=== PATIENT | female | born 1940 | race Caucasian/White ===

== ENCOUNTER 2018-11-06 10:30 | Inpatient (IN) ==
--- NOTE | 2018-11-06 11:30 | ED ---
HPI General Chief Complaint: Psychiatric Symptoms Stated Complaint: psych eval Time Seen by Provider: 11/06/18 10:50 Source: other (Kennedy act report) Mode of arrival: ambulatory Limitations: no limitations History of Present Illness HPI Narrative: 78-year-old female, with history of dementia and Alzheimer's, presents from [facility] under a Kennedy act. According to the Kennedy act report the patient's behavior has escalated today, she is throwing items at other people, hitting shelving, throwing feces, etc. Very paranoid. Refusing meds this morning, knocked the cup out of nurses hand. HPI is limited secondary to patient's mental condition. She is oriented to self. When asked questions she answers them with inappropriate answers. She told me she was at a democrat until 4 AM this morning. She asked me if we could go faster, and when I asked her how fast she wanted to go she commented "are you calling me fat." She is calm at this time. She does not appear in any acute distress. She is awake, alert and confused. Related Data Home Medications Medication Instructions Recorded Confirmed acetaminophen 650 mg PO Q4HR PRN 11/06/18 11/06/18 cyanocobalamin (vitamin B-12) 1,000 mcg PO DAILY 11/06/18 11/06/18 [Vitamin B-12] diltiazem HCl 30 mg PO TID 11/06/18 11/06/18 escitalopram oxalate 10 mg PO DAILY 11/06/18 11/06/18 hydroxyzine pamoate [Vistaril] 25 mg PO TID 11/06/18 11/06/18 ipratropium-albuterol 3 ml INHALATION QID 11/06/18 11/06/18 memantine 10 mg PO DAILY 11/06/18 11/06/18 oseltamivir [Tamiflu] 75 mg PO BID 11/06/18 11/06/18 propafenone 150 mg PO TID 11/06/18 11/06/18 quetiapine 50 mg PO HS 11/06/18 11/06/18 Allergies Allergy/AdvReac Type Severity Reaction Status Date / Time atorvastatin Allergy Unknown Verified 11/06/18 12:29 rosuvastatin [From Crestor] Allergy Unknown Verified 11/06/18 12:29 Review of Systems ROS Unobtainable ROS Unobtainable: unobtainable due to mental condition [facility] Medical History Medical History Altered mental status, unspecified (Acute) Alzheimers disease (Acute) Cardiac arrhythmia (Acute) Generalized anxiety disorder (Acute) Hypertension (Acute) Major depressive disorder, recurrent (Acute) Surgical history unknown (Acute) Unspecified dementia with behavioral disturbance (Acute) Family History Family History Other Unknown family medical history Social History Social History Substance History: No History of Abuse Second Hand Smoke Exposure: No Smoking Status: Never smoker How Often Do You Have a Drink Containing Alcohol: Never Recent Travel in [facility] within the Last 8 Weeks: No Recent Out of Country Travel within the Last 8 Weeks: No Immunization History Tetanus Immunization: Unable to Assess Exam Narrative Exam Narrative: GENERAL: Well-nourished, well-developed elderly female patient, in no acute distress SKIN: Warm and dry. HEAD: Atraumatic. Normocephalic. EYES: Pupils equal and round. ENT: Mucosa pink and moist. NECK: Supple. Trachea midline. CARDIOVASCULAR: Regular rate and rhythm. No murmur appreciated. RESPIRATORY: No accessory muscle use. Clear to auscultation. Breath sounds equal bilaterally. GASTROINTESTINAL: Abdomen soft, non-tender, nondistended. Hepatic and splenic margins not palpable. Bowel sounds are active 4 quadrants. MUSCULOSKELETAL: No obvious deformities. No clubbing. No cyanosis. No edema. NEUROLOGICAL: Awake and alert. Oriented 1; Self. No obvious cranial nerve deficits. Motor grossly within normal limits. Normal speech. Moves all extremities. 5/5 strength to all extremities. PSYCHIATRIC: Demented. Course Initial Documented Vital Signs Temperature 98.6 F 11/06/18 10:46 Pulse Rate 75 11/06/18 10:46 Respiratory Rate 18 11/06/18 10:46 Blood Pressure 154/87 H 11/06/18 10:46 Pulse Oximetry 97 11/06/18 10:46 Last Documented Vital Signs Temperature 98.6 F 11/06/18 10:46 Pulse Rate 67 11/06/18 15:57 Respiratory Rate 18 11/06/18 15:57 Blood Pressure 124/83 11/06/18 14:39 Pulse Oximetry 98 11/06/18 14:39 Medical Decision Making MDM Narrative Medical decision making narrative: Patient presents under a Kennedy act This is an inappropriate Kennedy act, as the patient is demented and has history of Alzheimer's, and does not meet Kennedy act criteria. She is alert and oriented x1 , to self. I cannot lift Kennedy acts, so psych screen will be ordered for the Kennedy act to be lifted. Case management consulted as the living facility she came from does not want her back in their facility. I suspect this patient will be a social admit if placement is not found. Physical examination and vital signs are essentially unremarkable. Psych screen has been ordered. If the laboratory results are unremarkable, the patient will be medically cleared for psychiatric evaluation and disposition. Patient had a CT of her head on 2017 which was unremarkable. I do not feel it is necessary to repeat a CT scan as there has been no injury or falls reported. Patient is continuously trying to get out of bed and she continues to have soft restraints. Patient has IV in place. I will order Ativan to see if we can calm the patient and get her out of the soft restraints. Ativan 0.5 mg IV ordered. Patient continued to be agitated and trying to climb out of bed continuously. IV has come out. 1 mg Ativan IM ordered. CBC unremarkable. TSH 1.780. Urinalysis with signs of infection. 1 g Rocephin IM ordered. Keflex 500 mg every 8 hours scheduled times 7 days. Nurse was concerned about the smell of the patient's stool and stool sample was collected and C. difficile ordered. C. difficile pending. Patient has been evaluated by GERSON Hdez and is being admitted to psychiatry. Medical Screen Exam Complete: Yes Emergency Medical Condition: Yes Differential Diagnosis Differential Diagnosis: Dementia, Alzheimer's, UTI, electrolyte imbalance, medical clearance for psychiatric assessment Lab Data Result diagrams: 11/06/18 11:20 11/06/18 11:20 Lab Results 11/06/18 11/06/18 11/06/18 Range/Units 11:20 11:20 11:20 WBC 9.1 (4.0-11.0) th/mm3 RBC 4.16 (4.00-5.30) mil/mm3 Hgb 13.2 (11.6-15.3) gm/dL Hct 37.7 (35.0-46.0) % MCV 90.7 (80.0-100.0) fL MCH 31.8 (27.0-34.0) pg MCHC 35.1 (32.0-36.0) % RDW 13.2 (11.6-17.2) % Plt Count 224 (150-450) th/mm3 MPV 7.3 (7.0-11.0) fL Neut % (Auto) 77.2 H (16.0-70.0) % Lymph % (Auto) 11.5 (9.0-44.0) % [place] % (Auto) 10.3 H (0.0-8.0) % Eos % (Auto) 0.6 (0.0-4.0) % Baso % (Auto) 0.4 (0.0-2.0) % Neut # (Auto) 7.0 (1.8-7.7) th/mm3 Lymph # (Auto) 1.0 (1.0-4.8) th/mm3 [place] # (Auto) 0.9 (0.0-0.9) th/mm3 Eos # (Auto) 0.1 (0.0-0.4) th/mm3 Baso # (Auto) 0.0 (0.0-0.2) th/mm3 WBC Differential . Differential Comment Auto diff final Sodium 140 (136-145) meq/L Potassium 3.8 (3.5-5.1) meq/L Chloride 106 (98-107) meq/L Carbon Dioxide 22.7 (21.0-32.0) meq/L Anion Gap 11 (5-15) meq/L BUN 20 H (7-18) mg/dL Creatinine 1.15 H (0.50-1.00) mg/dL Estimated GFR 46 L (>89) mL/min Random Glucose 84 (74-106) mg/dL Calcium 8.6 (8.5-10.1) mg/dL Magnesium 1.7 (1.5-2.5) mg/dL Total Bilirubin 1.1 H (0.2-1.0) mg/dL AST 56 H (15-37) U/L ALT 34 (10-53) U/L Alkaline Phosphatase 63 (45-117) U/L Total Protein 7.4 (6.4-8.2) g/dL Albumin 3.5 (3.4-5.0) g/dL TSH 1.780 (0.358-3.740) uIU/mL Urine Color (Yellw/Straw) Urine Clarity (Clear) Urine pH (5.0-8.5) Ur Specific [place] (1.002-1.035) Urine Protein (Neg-Trace) mg/dL Urine Glucose (UA) (Negative) mg/dL Urine Ketones (Negative) mg/dL Urine Occult Blood (Negative) Urine Nitrate (Negative) Urine Bilirubin (Negative) Urine Urobilinogen (Less than 2) mg/dL Ur Leukocyte Esterase (Negative) Urine RBC (0-3) /hpf Urine WBC (0-5) /hpf Urine Bacteria (None) /hpf Urine Mucus (Occasional) /lpf Micro UA Comment Ur Microscopic Review Urine Culture Comments Stl C.difficile DNA Amp (Negative) St C. diff Tox Epid 027 (Negative) Salicylates Less than 1.7 L (2.8-20.0) mg/dL Urine Opiates Screen (Neg) Acetaminophen Less than 2.0 L (10.0-30.0) mcg/mL Ur Barbiturates Screen (Neg) Ur Amphetamines Screen (Neg) U Benzodiazepines Scrn (Neg) Urine Cocaine Screen (Neg) U Cannabinoids Screen (Neg) Serum Alcohol Less than 3 (0-5) mg/dL 11/06/18 11/06/18 11/06/18 Range/Units 14:25 14:25 14:30 WBC (4.0-11.0) th/mm3 RBC (4.00-5.30) mil/mm3 Hgb (11.6-15.3) gm/dL Hct (35.0-46.0) % MCV (80.0-100.0) fL MCH (27.0-34.0) pg MCHC (32.0-36.0) % RDW (11.6-17.2) % Plt Count (150-450) th/mm3 MPV (7.0-11.0) fL Neut % (Auto) (16.0-70.0) % Lymph % (Auto) (9.0-44.0) % [place] % (Auto) (0.0-8.0) % Eos % (Auto) (0.0-4.0) % Baso % (Auto) (0.0-2.0) % Neut # (Auto) (1.8-7.7) th/mm3 Lymph # (Auto) (1.0-4.8) th/mm3 [place] # (Auto) (0.0-0.9) th/mm3 Eos # (Auto) (0.0-0.4) th/mm3 Baso # (Auto) (0.0-0.2) th/mm3 WBC Differential Differential Comment Sodium (136-145) meq/L Potassium (3.5-5.1) meq/L Chloride (98-107) meq/L Carbon Dioxide (21.0-32.0) meq/L Anion Gap (5-15) meq/L BUN (7-18) mg/dL Creatinine (0.50-1.00) mg/dL Estimated GFR (>89) mL/min Random Glucose (74-106) mg/dL Calcium (8.5-10.1) mg/dL Magnesium (1.5-2.5) mg/dL Total Bilirubin (0.2-1.0) mg/dL AST (15-37) U/L ALT (10-53) U/L Alkaline Phosphatase (45-117) U/L Total Protein (6.4-8.2) g/dL Albumin (3.4-5.0) g/dL TSH (0.358-3.740) uIU/mL Urine Color Yellow (Yellw/Straw) Urine Clarity Hazy H (Clear) Urine pH 5.0 (5.0-8.5) Ur Specific [place] 1.016 (1.002-1.035) Urine Protein Negative (Neg-Trace) mg/dL Urine Glucose (UA) Negative (Negative) mg/dL Urine Ketones 20 (Negative) mg/dL Urine Occult Blood Negative (Negative) Urine Nitrate Positive H (Negative) Urine Bilirubin Negative (Negative) Urine Urobilinogen Less than 2 (Less than 2) mg/dL Ur Leukocyte Esterase Trace H (Negative) Urine RBC 1 (0-3) /hpf Urine WBC 15 H (0-5) /hpf Urine Bacteria Moderate H (None) /hpf Urine Mucus Few H (Occasional) /lpf Micro UA Comment Cath-culture ind Ur Microscopic Review Not Reportable Urine Culture Comments Cath-cult indicated Stl C.difficile DNA Amp Negative (Negative) St C. diff Tox Epid 027 Negative (Negative) Salicylates (2.8-20.0) mg/dL Urine Opiates Screen Neg (Neg) Acetaminophen (10.0-30.0) mcg/mL Ur Barbiturates Screen Neg (Neg) Ur Amphetamines Screen Neg (Neg) U Benzodiazepines Scrn Neg (Neg) Urine Cocaine Screen Neg (Neg) U Cannabinoids Screen Neg (Neg) Serum Alcohol (0-5) mg/dL Discharge Plan Discharge Disposition Patient Disposition: Sign Out(ED Internal Use Only) Discharge Condition Condition: Stable Discharge Order Discharge Orders: ED Use Only Admit Order (Routine); Ordered 11/06/18 Ordered By: Nimo Smith Discharge Details Diagnosis: Dementia with behavioral disturbance, Encounter for psychiatric assessment, UTI (urinary tract infection) Physicians Team ED Provider: Mukul Forde ED Midlevel Provider: Deedee Baron Primary Care Provider: Leobardo Pettit Attending Provider: Augustus Winkler Status ED Status: Admitted Patient
[2018-11-06 11:59] LABS: Baso % (Auto) 0.4 % (0.0-2.0); Eos # (Auto) 0.1 th/mm3 (0.0-0.4); Eos % (Auto) 0.6 % (0.0-4.0); Hematocrit 37.7 % (35.0-46.0); Hemoglobin 13.2 gm/dL (11.6-15.3); Lymph % (Auto) 11.5 % (9.0-44.0); Mean Corpuscular HGB Conc 35.1 % (32.0-36.0); Mean Corpuscular Hemoglobin 31.8 pg (27.0-34.0); Mean Corpuscular Volume 90.7 fL (80.0-100.0); Mean Platelet Volume 7.3 fL (7.0-11.0); Mono # (Auto) 0.9 th/mm3 (0.0-0.9); Mono % (Auto) 10.3 % (0.0-8.0); Neut % (Auto) 77.2 % (16.0-70.0); Platelet Count 224 th/mm3 (150-450); Red Blood Count 4.16 mil/mm3 (4.00-5.30); Red Cell Distribution Width 13.2 % (11.6-17.2); White Blood Count 9.1 th/mm3 (4.0-11.0)
[2018-11-06 12:33] LABS: Alanine Aminotransferase 34 U/L (10-53); Albumin 3.5 g/dL (3.4-5.0); Alkaline Phosphatase 63 U/L (45-117); Anion Gap 11 meq/L (5-15); Aspartate Aminotransferase 56 U/L (15-37); Blood Urea Nitrogen 20 mg/dL (7-18); Calcium 8.6 mg/dL (8.5-10.1); Carbon Dioxide 22.7 meq/L (21.0-32.0); Chloride 106 meq/L (98-107); Glomerular Filtration Rate 46 mL/min (>89); Glucose,Random 84 mg/dL (74-106); Magnesium 1.7 mg/dL (1.5-2.5); Sodium 140 meq/L (136-145); Total Protein 7.4 g/dL (6.4-8.2)
[2018-11-06 12:38] LABS: Potassium 3.8 meq/L (3.5-5.1)
[2018-11-06 14:42] LABS: Bacteria,Urine Moderate /hpf; Bilirubin,Urine Negative (Negative); Clarity,Urine Hazy (Clear); Color,Urine Yellow (Yellw/Straw); Glucose,Urine (UA) Negative (Negative); Leukocyte Esterase,Urine Trace (Negative); Mucus,Urine Few /lpf (Occasional); Nitrite,Urine Positive (Negative); Specific Gravity,Urine 1.016 (1.002-1.035)
[2018-11-06 14:46] LABS: Amphetamine Screen,Urine Neg (Neg); Barbiturate Screen,Urine Neg (Neg); Cannabinoid Screen,Urine Neg (Neg); Cocaine Screen,Urine Neg (Neg)
[2018-11-06 14:48] LABS: Opiate Screen,Urine Neg (Neg)
[2018-11-06] MEDS ORDERED: Aluminum/Magnesium/Simethacone Susp 30 ML UDC PO PRN (15:16)
[2018-11-06] MEDS ORDERED: cefTRIAXone Inj 1,000 MG Vial IM ONE (15:19)
--- NOTE | 2018-11-06 16:30 | XR ---
EXAM DATE: 11/06/2018 4:20 PM EST AGE/SEX: 78 years / Female INDICATIONS: Cough, psychosis. CLINICAL DATA: This is the patient's initial encounter. Patient reports that signs and symptoms have been present for 1 day and indicates a pain score of Nonresponsive. MEDICAL/SURGICAL HISTORY: Hypertension. Alzheimer's. Non-responsive. COMPARISON: No prior exams available for comparison. FINDINGS: A single AP view of the chest demonstrates the lungs to be symmetrically aerated without evidence of mass, infiltrate or effusion. Right paratracheal density likely confluence of vasculature. The cardio mediastinal contours are unremarkable. Osseous structures are intact. CONCLUSION: No acute cardiopulmonary disease. Electronically signed by: Sanjay Art MD Board Certified Radiologist 11/06/2018 4:29 PM EST
--- NOTE | 2018-11-06 17:31 | ED ---
HPI - Psych - General Time Seen by Psych Provider: 15:13 Source: family, old records reviewed, other (Kennedy act report) Mode of arrival: ambulatory Limitations: altered mental status - General Chief Complaint: Psychiatric Symptoms Stated Complaint: psych eval Time Seen by Provider: 11/06/18 10:50 - History of Present Illness HPI Narrative: This is a 78-year-old single, female who presents under Kennedy act for behavioral disturbances in the presence of dementia while at her long-term care facility. Patient is known to this department with a recent admission in August. Reviewed electronic medical records, labs, discussed case with staff. Patient noted to have a urinary tract infection at this time. Discussed it with medical nurse practitioner who is ordering appropriate antibiotics. Patient was evaluated in D 42. She has found in soft restraints to her upper extremities. Patient is unable to answer any questions as she is diffusely confused. Staff reports that when not in restraints patient has been attempting to hit, scratch, bite, and throw things at them. In reviewing the paperwork from her facility, the documentation shows that patient has had no behavioral issues over the past several weeks. It would appear that she has an acute onset of delusional behavior likely related to her urinary tract infection. In speaking with her sister, who is also her surrogate /guardian, the patient does not appear to have had any psychiatric diagnoses prior to her developing dementia. This is reports there is some confusion as to whether she "really has dementia or not". This is her states that a Dr. Morales reversed her diagnosis of dementia sometime in the recent past. However, the sister reports that recently when her daughter went to visit the patient the patient was confused as to who she was. She also mentions several other memory lapses which would seem to point towards dementia. (Nimo Smith) - Related Data Home Medications Medication Instructions Recorded Confirmed acetaminophen 650 mg PO Q4HR PRN 11/06/18 11/06/18 cyanocobalamin (vitamin B-12) 1,000 mcg PO DAILY 11/06/18 11/06/18 [Vitamin B-12] diltiazem HCl 30 mg PO TID 11/06/18 11/06/18 escitalopram oxalate 10 mg PO DAILY 11/06/18 11/06/18 hydroxyzine pamoate [Vistaril] 25 mg PO TID 11/06/18 11/06/18 ipratropium-albuterol 3 ml INHALATION QID 11/06/18 11/06/18 memantine 10 mg PO DAILY 11/06/18 11/06/18 oseltamivir [Tamiflu] 75 mg PO BID 11/06/18 11/06/18 propafenone 150 mg PO TID 11/06/18 11/06/18 quetiapine 50 mg PO HS 11/06/18 11/06/18 Allergies Allergy/AdvReac Type Severity Reaction Status Date / Time atorvastatin Allergy Unknown Verified 11/06/18 12:29 rosuvastatin [From Crestor] Allergy Unknown Verified 11/06/18 12:29 Review of Systems All other systems reviewed negative except as stated in HPI PMFSH - History History Provided By: Patient - Medical History Medical History: Medical History (Last Reviewed 11/06/18 @ 17:26 by GERSON eDgroot) Altered mental status, unspecified Alzheimers disease Cardiac arrhythmia Generalized anxiety disorder Hypertension Major depressive disorder, recurrent Surgical history unknown Unspecified dementia with behavioral disturbance - Family History Family History: Family History (Last Updated 09/21/18 @ 17:26 by GERSON Love) Other Unknown family medical history - Tobacco History Second Hand Smoke Exposure: No Smoking Status: Never smoker - Alcohol History How Often Do You Have a Drink Containing Alcohol: Never - Substance Use History Substance History: No History of Abuse - Travel History Recent Travel in the [place] Within the Last 8 Weeks: No Recent Travel Out of the Country Within the Last 8 Weeks: No - Immunization History Tetanus Immunization: Unable to Assess Psychiatric History - Psychiatric History Psychiatric Treatment History: History of Psychiatric Treatment History of Inpatient Treatment: Yes Firearms in Home: No - Psychiatric History Patient was admitted here in August (Nimo Smith) Physical Exam - General Limitations: altered mental status General appearance: alert - Head Head exam: atraumatic - Neurological Exam Neurological exam: Present: other (Unable to assess) - Psychiatric Psychiatric exam: Present: other (Unable to assess) - Skin Skin exam: Present: warm Mental Status Examination Appearance: Disheveled Consciousness: Alert Orientation: Person (Unable to assess) Motor Activity: Other (In restraints) Speech: Other (Unable to assess) Language: Other Fund of Knowledge: Poor Attention and Concentration: Other (Unable to assess) Memory: Impaired Mood: Other (Unable to assess) Affect: Irritable Thought Process & Associations: Other (Unable to assess) Thought Content: Other (Unable to assess) Hallucination Type: Other (Unable to assess) Delusion Type: Other (Unable to assess) Suicidal Ideation: No Suicidal Plan: No Suicidal Intention: No Homicidal Ideation: No Homicidal Plan: No Homicidal Intention: No Insight: Poor Judgment: Poor Initial Documented Vital Signs Temperature 98.6 F 11/06/18 10:46 Pulse Rate 75 11/06/18 10:46 Respiratory Rate 18 11/06/18 10:46 Blood Pressure 154/87 H 11/06/18 10:46 Pulse Oximetry 97 11/06/18 10:46 Last Documented Vital Signs Temperature 98.6 F 11/06/18 10:46 Pulse Rate 67 11/06/18 15:57 Respiratory Rate 18 11/06/18 15:57 Blood Pressure 124/83 11/06/18 14:39 Pulse Oximetry 98 11/06/18 14:39 MDM - Psych - Diagnosis (1) Dementia with behavioral disturbance Code(s): F03.91 - Unspecified dementia with behavioral disturbance Status: Acute - Lab Data Result diagrams: 11/06/18 11:20 11/06/18 11:20 - MDM Narrative Medical decision making narrative: Given that the patient is being aggressive and poses a danger to others she meets inpatient admission criteria. Therefore, I am admitting her to a locked inpatient psychiatric unit for further evaluation and treatment as deemed necessary. I have obtained consent via phone from her sister, surrogate/ guardian to continue her current psychotropic regimen. Patient is being started on antibiotics for a urinary tract infection and it is my hope that as the UTI clears so we will her symptoms. She was started on Tamiflu yesterday however, her sister stated that the facility told her she did not have the flu. An influenza test at this facility shows she is negative for both a and B influenza therefore, I will not continue the Tamiflu. (Nimo Smith) - Lab Data Lab Results 11/06/18 11/06/18 11/06/18 Range/Units 11:20 11:20 11:20 WBC 9.1 (4.0-11.0) th/mm3 RBC 4.16 (4.00-5.30) mil/mm3 Hgb 13.2 (11.6-15.3) gm/dL Hct 37.7 (35.0-46.0) % MCV 90.7 (80.0-100.0) fL MCH 31.8 (27.0-34.0) pg MCHC 35.1 (32.0-36.0) % RDW 13.2 (11.6-17.2) % Plt Count 224 (150-450) th/mm3 MPV 7.3 (7.0-11.0) fL Neut % (Auto) 77.2 H (16.0-70.0) % Lymph % (Auto) 11.5 (9.0-44.0) % [place] % (Auto) 10.3 H (0.0-8.0) % Eos % (Auto) 0.6 (0.0-4.0) % Baso % (Auto) 0.4 (0.0-2.0) % Neut # (Auto) 7.0 (1.8-7.7) th/mm3 Lymph # (Auto) 1.0 (1.0-4.8) th/mm3 [place] # (Auto) 0.9 (0.0-0.9) th/mm3 Eos # (Auto) 0.1 (0.0-0.4) th/mm3 Baso # (Auto) 0.0 (0.0-0.2) th/mm3 WBC Differential . Differential Comment Auto diff final Sodium 140 (136-145) meq/L Potassium 3.8 (3.5-5.1) meq/L Chloride 106 (98-107) meq/L Carbon Dioxide 22.7 (21.0-32.0) meq/L Anion Gap 11 (5-15) meq/L BUN 20 H (7-18) mg/dL Creatinine 1.15 H (0.50-1.00) mg/dL Estimated GFR 46 L (>89) mL/min Random Glucose 84 (74-106) mg/dL Calcium 8.6 (8.5-10.1) mg/dL Magnesium 1.7 (1.5-2.5) mg/dL Total Bilirubin 1.1 H (0.2-1.0) mg/dL AST 56 H (15-37) U/L ALT 34 (10-53) U/L Alkaline Phosphatase 63 (45-117) U/L Total Protein 7.4 (6.4-8.2) g/dL Albumin 3.5 (3.4-5.0) g/dL TSH 1.780 (0.358-3.740) uIU/mL Urine Color (Yellw/Straw) Urine Clarity (Clear) Urine pH (5.0-8.5) Ur Specific [place] (1.002-1.035) Urine Protein (Neg-Trace) mg/dL Urine Glucose (UA) (Negative) mg/dL Urine Ketones (Negative) mg/dL Urine Occult Blood (Negative) Urine Nitrate (Negative) Urine Bilirubin (Negative) Urine Urobilinogen (Less than 2) mg/dL Ur Leukocyte Esterase (Negative) Urine RBC (0-3) /hpf Urine WBC (0-5) /hpf Urine Bacteria (None) /hpf Urine Mucus (Occasional) /lpf Micro UA Comment Ur Microscopic Review Urine Culture Comments Stl C.difficile DNA Amp (Negative) St C. diff Tox Epid 027 (Negative) Salicylates Less than 1.7 L (2.8-20.0) mg/dL Urine Opiates Screen (Neg) Acetaminophen Less than 2.0 L (10.0-30.0) mcg/mL Ur Barbiturates Screen (Neg) Ur Amphetamines Screen (Neg) U Benzodiazepines Scrn (Neg) Urine Cocaine Screen (Neg) U Cannabinoids Screen (Neg) Serum Alcohol Less than 3 (0-5) mg/dL 11/06/18 11/06/18 11/06/18 Range/Units 14:25 14:25 14:30 WBC (4.0-11.0) th/mm3 RBC (4.00-5.30) mil/mm3 Hgb (11.6-15.3) gm/dL Hct (35.0-46.0) % MCV (80.0-100.0) fL MCH (27.0-34.0) pg MCHC (32.0-36.0) % RDW (11.6-17.2) % Plt Count (150-450) th/mm3 MPV (7.0-11.0) fL Neut % (Auto) (16.0-70.0) % Lymph % (Auto) (9.0-44.0) % [place] % (Auto) (0.0-8.0) % Eos % (Auto) (0.0-4.0) % Baso % (Auto) (0.0-2.0) % Neut # (Auto) (1.8-7.7) th/mm3 Lymph # (Auto) (1.0-4.8) th/mm3 [place] # (Auto) (0.0-0.9) th/mm3 Eos # (Auto) (0.0-0.4) th/mm3 Baso # (Auto) (0.0-0.2) th/mm3 WBC Differential Differential Comment Sodium (136-145) meq/L Potassium (3.5-5.1) meq/L Chloride (98-107) meq/L Carbon Dioxide (21.0-32.0) meq/L Anion Gap (5-15) meq/L BUN (7-18) mg/dL Creatinine (0.50-1.00) mg/dL Estimated GFR (>89) mL/min Random Glucose (74-106) mg/dL Calcium (8.5-10.1) mg/dL Magnesium (1.5-2.5) mg/dL Total Bilirubin (0.2-1.0) mg/dL AST (15-37) U/L ALT (10-53) U/L Alkaline Phosphatase (45-117) U/L Total Protein (6.4-8.2) g/dL Albumin (3.4-5.0) g/dL TSH (0.358-3.740) uIU/mL Urine Color Yellow (Yellw/Straw) Urine Clarity Hazy H (Clear) Urine pH 5.0 (5.0-8.5) Ur Specific [place] 1.016 (1.002-1.035) Urine Protein Negative (Neg-Trace) mg/dL Urine Glucose (UA) Negative (Negative) mg/dL Urine Ketones 20 (Negative) mg/dL Urine Occult Blood Negative (Negative) Urine Nitrate Positive H (Negative) Urine Bilirubin Negative (Negative) Urine Urobilinogen Less than 2 (Less than 2) mg/dL Ur Leukocyte Esterase Trace H (Negative) Urine RBC 1 (0-3) /hpf Urine WBC 15 H (0-5) /hpf Urine Bacteria Moderate H (None) /hpf Urine Mucus Few H (Occasional) /lpf Micro UA Comment Cath-culture ind Ur Microscopic Review Not Reportable Urine Culture Comments Cath-cult indicated Stl C.difficile DNA Amp Negative (Negative) St C. diff Tox Epid 027 Negative (Negative) Salicylates (2.8-20.0) mg/dL Urine Opiates Screen Neg (Neg) Acetaminophen (10.0-30.0) mcg/mL Ur Barbiturates Screen Neg (Neg) Ur Amphetamines Screen Neg (Neg) U Benzodiazepines Scrn Neg (Neg) Urine Cocaine Screen Neg (Neg) U Cannabinoids Screen Neg (Neg) Serum Alcohol (0-5) mg/dL
[2018-11-06] MEDS: dilTIAZem 30 MG Tablet PO SCH (18:44)
[2018-11-06] MEDS: Propafenone 150 MG Tablet PO SCH (18:44)
[2018-11-06] MEDS ORDERED: Non-Formulary Drug (Quetiapine [Quetiapine] 50 MG) PO SCH (21:00)
[2018-11-06] MEDS: QUEtiapine 25 MG Tablet PO SCH (21:36)
[2018-11-07] MEDS ORDERED: Acetaminophen 325 MG Tablet PO PRN (00:30)
[2018-11-07 07:47] LABS: Calcium 8.1 mg/dL (8.5-10.1); Carbon Dioxide 27.9 meq/L (21.0-32.0); Chol/HDL Ratio 3.27 Ratio
[2018-11-07] MEDS: dilTIAZem 30 MG Tablet PO SCH ×3 (08:00→18:15)
[2018-11-07] MEDS: Escitalopram 10 MG Tablet PO SCH (08:00)
[2018-11-07] MEDS: Propafenone 150 MG Tablet PO SCH ×3 (08:00→18:16)
[2018-11-07 08:02] LABS: Potassium 2.6 meq/L (3.5-5.1)
--- NOTE | 2018-11-07 13:22 | P.HPPSY ---
Provisional Diagnosis Admission Date: November 06, 2018 15:30 Burt I.: Dementia with behavioral disturbances Burt III.: Urinary tract infection Competence Certification of Person's Competence To Provide Express and Informed Consent I have personally examined Heidi Powell, a person being served at [facility] on, November 07, 2018 1309. Express and informed consent means consent voluntarily given in writing, by a competent person, after sufficient explanation and disclosure of the subject matter involved to enable the person to make a knowing and willful decision without any element of force, fraud, deceit, duress, or other form of constraint or coercion. This person is 18 years of age or older, is not now known to be incompetent to consent to treatment with a guardian advocate, and does not have a health care surrogate or proxy currently making medical treatment decisions. I have found this person to be one of the following: [] Competent to provide express and informed consent, as defined above, for voluntary admission to this facility and is competent to provide express and informed consent for treatment. He/she has the consistent capacity to make well reasoned, willful, and knowing decisions concerning his or her medical or mental health treatment. The person fully and consistently understands the purpose of the admission for examination/placement and is fully capable of personally exercising all rights assured under [place]xxx] Incompetent to provide express and informed consent to voluntary admission , and this is incompetent to provide express and informed consent to treatment. The person must be transferred to involuntary status and a petition for a guardian advocate filed with the Circuit Court. [] Refusing to provide express and informed consent to voluntary admission but is competent to provide express and informed consent for treatment. The person must be discharged or transferred to involuntary status. Form shall be completed within 24 hours of a person's arrival at the receiving facility and filed in the clinical record of each person: 1. Admitted on a voluntary basis 2. Permitted to provide express and informed consent to his/her own treatment 3. Allowed to transfer from involuntary to voluntary status 4. Prior to permitting a person to consent to his or her own treatment after having been previously found incompetent to consent to treatment. History of Present Illness Capacity: Lacks capacity History of Present Illness: Patient is a 78-year-old woman, domiciled in a nursing facility ( [facility]), who carries a diagnosis of dementia, one previous psychiatric admission here at [facility] in August 2018, with no substance use history, with a past medical significant for hypertension, cardiac arrhythmias, and recent diagnosis of urinary tract infection which patient was brought in under Kennedy act due to alleged behavior of aggression toward staff at facility which patient was admitted to the inpatient psychiatry for further evaluation and management. As per chart patient was discharged during last admission on quetiapine 50 g p.o. at bedtime, Lexapro 10 mg p.o. daily which as per report has been refusing meds prior to her admission, with behavior that has been "escalating" which patient was allegedly throwing items at people, throwing feces, paranoid. As per ED note facility had mentioned refused to take patient back. Patient was started on Keflex for UTI in the ED along with C. difficile stool sample which as per lab is negative at this time. Patient is alert and oriented only to person. Patient was seen with nurse earlier this morning and found lying in hospital bed with eyes closed, was refusing to engage in interview, was nonverbal this morning, continues to have poor p.o. intake. Labs reviewed patient noted to have hypokalemia which currently being managed by medical team. As per chart patient's sister had consented to continue psychiatric medications. Family psychiatric history: Unknown Past psychiatric history: previous psychiatric diagnosis of dementia, one prior psychiatric admission here at [facility] August 2018, unknown prior suicide attempts, previous medication trials include quetiapine 50 mg p.o. at bedtime, citalopram 10 mg p.o. daily. Substance use history: Denies Past medical history: Hypertension, cardiac arrhythmia Allergies: Atorvastatin, rosuvastatin Social history: [facility] ([facility]). - Inpatient Certification I certify that the inpatient services were ordered in accordance with Medicare regulations governing the order. This includes certification that hospital inpatient services are reasonable and necessary and in the case of services not specified as inpatient-only under 42 CFR 419.22(n), that they are appropriately provided as inpatient services in accordance to with the 2-midnight benchmark under 43 CFR 412.3(e) I certify that inpatient psychiatric hospital services are medically necessary. Evaluation and treatment and/or diagnostic testing are expected to improve the patient's condition. The patient needs on a daily basis, active treatment furnished directly by or requiring the supervision of inpatient psychiatric facility personnel. Estimated Total Length of Stay (Days): 5 Plans for Post Hospital Care: Not yet determined Review of Systems unobtainable due to mental condition PMFSH - History History Provided By: Patient, Medical Record - Medical History Medical History: Medical History (Last Reviewed 11/06/18 @ 17:26 by GERSON Degroot) Altered mental status, unspecified Alzheimers disease Cardiac arrhythmia Generalized anxiety disorder Hypertension Major depressive disorder, recurrent Surgical history unknown Unspecified dementia with behavioral disturbance - Family History Family History: Family History (Last Updated 09/21/18 @ 17:26 by GERSON Love) Other Unknown family medical history - Tobacco History Second Hand Smoke Exposure: No Tobacco Use In Past 30 Days: No Smoking Status: Never smoker - Alcohol History How Often Do You Have a Drink Containing Alcohol: Never - Substance Use History Substance History: No History of Abuse - Travel History Recent Travel in the [place] Within the Last 8 Weeks: No Recent Travel Out of the Country Within the Last 8 Weeks: No - Immunization History Tetanus Immunization: Unable to Assess Quality Measures - Psychiatric History Psychological trauma history: Unable to assess due to patient's neurocognitive deficits. Violence risk to others in the last 6 months: Elevated due to the alleged report of recent aggressive behavior at nursing facility. Violence risk to self in the last 6 months: Low - Substance Abuse History Drug or alcohol use in the past 12 months: None - Patient Strengths Patient's strengths (minimum of 2): Burt to healthcare, social support Medications and Allergies Active Medications: Active Medications Acetaminophen (Tylenol) 650 mg PO Q4HR PRN PRN Reason: Fever Al Hydrox/Mg Hydrox/Simethicone (Mag-Al Plus Susp Liq) 30 ml PO Q6H PRN PRN Reason: DYSPEPSIA Al Hydroxide/Mg Hydroxide (Milk Of Magnesia Liq) 30 ml PO Q12H PRN PRN Reason: Mild Constipation Albuterol (Duoneb Neb (Zain)) 1 ampul NEB QID NEB ZAIN Last Admin: 11/07/18 12:54 Dose: 1 ampul Cephalexin Monohydrate (Keflex) 500 mg PO Q8HR ZAIN Stop: 11/13/18 21:59 Last Admin: 11/07/18 06:08 Dose: 500 mg Cyanocobalamin (Vitamin B12) 1,000 mcg PO DAILY ZAIN Last Admin: 11/07/18 08:01 Dose: 1,000 mcg Diltiazem HCl (Cardizem) 30 mg PO TID [facility] Last Admin: 11/07/18 12:10 Dose: 30 mg Escitalopram Oxalate (Lexapro) 10 mg PO DAILY [facility] Last Admin: 11/07/18 08:00 Dose: 10 mg Hydroxyzine Pamoate (Vistaril) 25 mg PO TID [facility] Last Admin: 11/07/18 12:11 Dose: 25 mg Memantine (Namenda) 10 mg PO DAILY [facility] Last Admin: 11/07/18 08:00 Dose: 10 mg Oseltamivir Phosphate (Tamiflu) 75 mg PO BID [facility] Stop: 11/10/18 12:00 Propafenone HCl (Rythmol) 150 mg PO TID [facility] Last Admin: 11/07/18 12:11 Dose: 150 mg Quetiapine Fumarate (Seroquel) 50 mg PO [facility] Last Admin: 11/06/18 21:36 Dose: 50 mg Allergies Allergy/AdvReac Type Severity Reaction Status Date / Time atorvastatin Allergy Unknown Verified 11/06/18 12:29 rosuvastatin [From Crestor] Allergy Unknown Verified 11/06/18 12:29 Home Medications Medication Instructions Recorded Confirmed Type acetaminophen 650 mg PO Q4HR PRN 11/06/18 11/06/18 History cyanocobalamin (vitamin B-12) 1,000 mcg PO DAILY 11/06/18 11/06/18 History [Vitamin B-12] diltiazem HCl 30 mg PO TID 11/06/18 11/06/18 History escitalopram oxalate 10 mg PO DAILY 11/06/18 11/06/18 History hydroxyzine pamoate [Vistaril] 25 mg PO TID 11/06/18 11/06/18 History ipratropium-albuterol 3 ml INHALATION QID 11/06/18 11/06/18 History memantine 10 mg PO DAILY 11/06/18 11/06/18 History oseltamivir [Tamiflu] 75 mg PO BID 11/06/18 11/06/18 History propafenone 150 mg PO TID 11/06/18 11/06/18 History quetiapine 50 mg PO HS 11/06/18 11/06/18 History Results - Labs CBC & Chem 7: 11/06/18 11:20 11/07/18 06:49 Labs: Laboratory Results - last 24 hr 11/06/18 11/06/18 11/06/18 14:25 14:25 14:30 Sodium Potassium Chloride Carbon Dioxide Anion Gap BUN Creatinine Estimated GFR Random Glucose Calcium Triglycerides Cholesterol LDL Cholesterol, Calc HDL Cholesterol Cholesterol/HDL Ratio Urine Color Yellow Urine Clarity Hazy H Urine pH 5.0 Ur Specific Freeman 1.016 Urine Protein Negative Urine Glucose (UA) Negative Urine Ketones 20 Urine Occult Blood Negative Urine Nitrate Positive H Urine Bilirubin Negative Urine Urobilinogen Less than 2 Ur Leukocyte Esterase Trace H Urine RBC 1 Urine WBC 15 H Urine Bacteria Moderate H Urine Mucus Few H Micro UA Comment Cath-culture ind Ur Microscopic Review Not Reportable Urine Culture Comments Cath-cult indicated Stl C.difficile DNA Amp Negative St C. diff Tox Epid 027 Negative Urine Opiates Screen Neg Ur Barbiturates Screen Neg Ur Amphetamines Screen Neg U Benzodiazepines Scrn Neg Urine Cocaine Screen Neg U Cannabinoids Screen Neg 11/07/18 06:49 Sodium 143 Potassium 2.6 L* D Chloride 108 H Carbon Dioxide 27.9 Anion Gap 7 BUN 15 Creatinine 0.86 Estimated GFR 64 L Random Glucose 96 Calcium 8.1 L Triglycerides 76 Cholesterol 177 LDL Cholesterol, Calc 108 H HDL Cholesterol 54.0 Cholesterol/HDL Ratio 3.27 Urine Color Urine Clarity Urine pH Ur Specific Freeman Urine Protein Urine Glucose (UA) Urine Ketones Urine Occult Blood Urine Nitrate Urine Bilirubin Urine Urobilinogen Ur Leukocyte Esterase Urine RBC Urine WBC Urine Bacteria Urine Mucus Micro UA Comment Ur Microscopic Review Urine Culture Comments Stl C.difficile DNA Amp St C. diff Tox Epid 027 Urine Opiates Screen Ur Barbiturates Screen Ur Amphetamines Screen U Benzodiazepines Scrn Urine Cocaine Screen U Cannabinoids Screen - Imaging Impressions Chest X-Ray 11/06/18 00:00 CONCLUSION: No acute cardiopulmonary disease. Exam Vital signs: Vital Signs 11/06/18 14:39 11/06/18 15:57 11/06/18 18:18 Temperature 98.1 F Pulse Rate 72 67 84 Respiratory Rate 20 18 16 Blood Pressure 124/83 90/63 L Pulse Oximetry 98 96 11/06/18 21:45 11/07/18 06:02 11/07/18 12:56 Temperature 98.7 F Pulse Rate 67 68 67 Respiratory Rate 22 18 16 Blood Pressure 151/67 H Pulse Oximetry 92 L Intake & Output 11/06/18 11/07/18 11/07/18 18:59 06:59 18:59 Intake Total 0 / 0 Balance 0 / 0 Weight 53.3 kg Intake: Oral 0 / 0 Other: # Voids 3 Narrative: Patient not noted to be in acute distress, limited examination due to patient's current mental status, no signs of tremor or EPS, no psychomotor agitation or retardation. - Constitutional no acute distress Mental Status Examination Appearance: Disheveled Consciousness: Alert Orientation: Person (Unable to assess) Speech: Other (Unable to assess) Language: Other (nonverbal at this time) Fund of Knowledge: Poor Attention and Concentration: Other (Unable to assess) Memory: Impaired Mood: Other (Unable to assess) Affect: Blunt Thought Process & Associations: Other (Unable to assess) Thought Content: Other (Unable to assess) Hallucination Type: Other (Unable to assess) Delusion Type: Other (Unable to assess) Suicidal Ideation: No Suicidal Plan: No Suicidal Intention: No Homicidal Ideation: No Homicidal Plan: No Homicidal Intention: No Insight: Poor Judgment: Poor Assessment and Plan - Assessment (1) Dementia with behavioral disturbance Code(s): F03.91 - Unspecified dementia with behavioral disturbance Status: Acute - Plan Plan: Estimated LOS: [] days Patient is a 78-year-old woman, domiciled in a nursing facility who carries a diagnosis of dementia, one recent psychiatric admission here at [facility] in August 2018 who was brought in under Kennedy act due to alleged report of patient being aggressive at nursing facility refusing medications in the context of current ongoing urinary tract infection which patient was admitted to the inpatient psychiatry for further evaluation and management. Patient recent behavioral disturbances likely secondary to urinary tract infection causing delirium and behavioral disturbances in the context of ongoing dementia. Patient to continue medical recommendations as per prior medical team, hospitalist consult pending. Patient will continue current psychotropic medications of quetiapine 50 mg p.o. at bedtime, citalopram 10 mg p.o. daily. We will request physical and occupational therapy consult as well as dietitian consult. EKG will be ordered as well. We will continue to monitor mood and behavior. Discharge planning in progress. Justification for Continued Inpatient Stay: At risk of further decompensation at lower level care. (1) Dementia with behavioral disturbance Qualifiers: Dementia type: unspecified type Qualified Code(s): F03.91 - Unspecified dementia with behavioral disturbance
[2018-11-07] MEDS: Potassium Chlor 20 mEq Premix 20 MEQ/100 ML PIGGYBACK IV.SIG SCH ×2 (14:47→18:15)
--- NOTE | 2018-11-07 15:14 | P.HPFP ---
History of Present Illness Service: fp Primary Care Physician: Leobardo Pettit MD Chief Complaint: AMS History of Present Illness: 78 Y CF. RECENT ADMIT TO [facility]. BARRACADED HERSELF AND WAS MCELROY ACTED. SHE THEN WENT BACK TO THE SNF AND NOW IS BACK AGAIN NAVI ACTED. WAS COMBATIVE AND PSYCHOTIC. FOUND WITH HYPOKALEMIA AND UTI. I WAS CALLED TODAY FOR K AND IVF ORDERS. PT SEEN IN THE PSYCH UNIT. SHE IS CONFUSED. SHE IS ASKING FOR A NEW GOWN. NURSING REPORTS PSYCHOSIS AND SOME COMPLAINTS OF LOW BACK PAIN AND SOME PAIN AROUND TO HER BLADDER AREA BUT OVERALL NONDESCRIPT. Inpatient Certification: I certify that the inpatient services were ordered in accordance with Medicare regulations governing the order. This includes certification that hospital inpatient services are reasonable and necessary and in the case of services not specified as inpatient-only under 42 CFR 419.22(n), that they are appropriately provided as inpatient services in accordance to with the 2-midnight benchmark under 43 CFR 412.3(e) Estimated Total Length of Stay (Days): 5 Plans for Post Hospital Care: Not yet determined Review of Systems unobtainable due to mental status PMFSH - History History Provided By: Patient, Medical Record - Medical History Medical History: Medical History (Last Reviewed 11/06/18 @ 17:26 by GERSON Degroot) Altered mental status, unspecified Alzheimers disease Cardiac arrhythmia Generalized anxiety disorder Hypertension Major depressive disorder, recurrent Surgical history unknown Unspecified dementia with behavioral disturbance - Family History Family History: Family History (Last Updated 09/21/18 @ 17:26 by GERSON Love) Other Unknown family medical history - Tobacco History Second Hand Smoke Exposure: No Tobacco Use In Past 30 Days: No Smoking Status: Never smoker - Alcohol History How Often Do You Have a Drink Containing Alcohol: Never - Substance Use History Substance History: No History of Abuse - Travel History Recent Travel in the [place] Within the Last 8 Weeks: No Recent Travel Out of the Country Within the Last 8 Weeks: No - Immunization History Tetanus Immunization: Unable to Assess Medications and Allergies Active Medications: Active Medications Acetaminophen (Tylenol) 650 mg PO Q4HR PRN PRN Reason: Fever Al Hydrox/Mg Hydrox/Simethicone (Mag-Al Plus Susp Liq) 30 ml PO Q6H PRN PRN Reason: DYSPEPSIA Al Hydroxide/Mg Hydroxide (Milk Of Magnesia Liq) 30 ml PO Q12H PRN PRN Reason: Mild Constipation Albuterol (Duoneb Neb (Zain)) 1 ampul NEB QID NEB [facility] Last Admin: 11/07/18 12:54 Dose: 1 ampul Cyanocobalamin (Vitamin B12) 1,000 mcg PO DAILY [facility] Last Admin: 11/07/18 08:01 Dose: 1,000 mcg Diltiazem HCl (Cardizem) 30 mg PO TID [facility] Last Admin: 11/07/18 12:10 Dose: 30 mg Escitalopram Oxalate (Lexapro) 10 mg PO DAILY [facility] Last Admin: 11/07/18 08:00 Dose: 10 mg Hydroxyzine Pamoate (Vistaril) 25 mg PO TID [facility] Last Admin: 11/07/18 12:11 Dose: 25 mg Potassium Chloride/Dextrose/Sod Cl (D5w/Ns + Kcl 40 Meq Inj) 1,000 mls @ 75 mls /hr IV.SIG .[id number] [facility] Potassium Chloride (Kcl 20 Meq Premix Inj) 20 meq in 100 mls @ 50 mls/hr IV.SIG Q2H [facility] Stop: 11/07/18 17:59 Last Admin: 11/07/18 14:47 Dose: 50 mls/hr Ceftriaxone Sodium 1,000 mg/ (Sodium Chloride) 100 mls @ 100 mls/hr IV.SIG Q24H ZAIN Memantine (Namenda) 10 mg PO DAILY [facility] Last Admin: 11/07/18 08:00 Dose: 10 mg Oseltamivir Phosphate (Tamiflu) 75 mg PO BID [facility] Stop: 11/10/18 12:00 Propafenone HCl (Rythmol) 150 mg PO TID [facility] Last Admin: 11/07/18 12:11 Dose: 150 mg Quetiapine Fumarate (Seroquel) 50 mg PO HS [facility] Last Admin: 11/06/18 21:36 Dose: 50 mg Allergies Allergy/AdvReac Type Severity Reaction Status Date / Time atorvastatin Allergy Unknown Verified 11/06/18 12:29 rosuvastatin [From Crestor] Allergy Unknown Verified 11/06/18 12:29 Home Medications Medication Instructions Recorded Confirmed Type acetaminophen 650 mg PO Q4HR PRN 11/06/18 11/06/18 History cyanocobalamin (vitamin B-12) 1,000 mcg PO DAILY 11/06/18 11/06/18 History [Vitamin B-12] diltiazem HCl 30 mg PO TID 11/06/18 11/06/18 History escitalopram oxalate 10 mg PO DAILY 11/06/18 11/06/18 History hydroxyzine pamoate [Vistaril] 25 mg PO TID 11/06/18 11/06/18 History ipratropium-albuterol 3 ml INHALATION QID 11/06/18 11/06/18 History memantine 10 mg PO DAILY 11/06/18 11/06/18 History oseltamivir [Tamiflu] 75 mg PO BID 11/06/18 11/06/18 History propafenone 150 mg PO TID 11/06/18 11/06/18 History quetiapine 50 mg PO HS 11/06/18 11/06/18 History Exam Vital signs: Vital Signs 11/06/18 15:57 11/06/18 18:18 11/06/18 21:45 Temperature 98.1 F Pulse Rate 67 84 67 Respiratory Rate 18 16 22 Blood Pressure 90/63 L Pulse Oximetry 96 11/07/18 06:02 11/07/18 12:56 Temperature 98.7 F Pulse Rate 68 67 Respiratory Rate 18 16 Blood Pressure 151/67 H Pulse Oximetry 92 L Intake & Output 11/06/18 11/07/18 11/07/18 18:59 06:59 18:59 Intake Total 0 / 0 Balance 0 / 0 Weight 53.3 kg Intake: Oral 0 / 0 Other: # Voids 3 - Constitutional no acute distress, chronically ill appearing - Routine HEENT Exam Head: Present: normocephalic Eye: Present: EOMI - Routine Neck Exam Present: full ROM - Routine Respiratory Exam Present: CTA bilaterally - Routine Cardiovascular Exam Present: RRR, S1, S2 - Routine Abdominal Exam Present: soft, normoactive bowel sounds - Routine Extremities Exam Present: full ROM - Routine Skin Exam Present: intact - Routine Neurological Exam Present: alert, moving all extremities, vision grossly intact, hearing grossly intact, normal speech Results - Labs Result diagrams: 11/06/18 11:20 11/07/18 06:49 Abnormal lab results 11/06/18 11/07/18 Range/Units 14:25 06:49 Potassium 2.6 L* D (3.5-5.1) meq/L Chloride 108 H (98-107) meq/L Estimated GFR 64 L (>89) mL/min Calcium 8.1 L (8.5-10.1) mg/dL LDL Cholesterol, Calc 108 H (0-99) mg/dL Urine Clarity Hazy H (Clear) Urine Nitrate Positive H (Negative) Ur Leukocyte Esterase Trace H (Negative) Urine WBC 15 H (0-5) /hpf Urine Bacteria Moderate H (None) /hpf Urine Mucus Few H (Occasional) /lpf BMP 11/07/18 06:49 Sodium 143 Potassium 2.6 L* D Chloride 108 H Carbon Dioxide 27.9 BUN 15 Creatinine 0.86 Calcium 8.1 L Urine 11/06/18 Range/Units 14:25 Urine Color Yellow (Yellw/Straw) Urine Clarity Hazy H (Clear) Urine pH 5.0 (5.0-8.5) Ur Specific Torrey 1.016 (1.002-1.035) Urine Protein Negative (Neg-Trace) mg/dL Urine Glucose (UA) Negative (Negative) mg/dL - Imaging Impressions Chest X-Ray 11/06/18 00:00 CONCLUSION: No acute cardiopulmonary disease. Caprini VTE Risk Assessment Caprini VTE Risk Assessment: No/Low Risk (score <= 1) Caprini Risk Assessment Model: Point Value = 1 Point Value = 2 Point Value = 3 Point Value = 5 Age 41-60 Minor surgery BMI > 25 kg/m2 Swollen legs Varicose veins or History of unexplained or recurrent spontaneous Oral contraceptives or hormone replacement Sepsis (< 1 month) Serious lung disease, including pneumonia (< 1 month) Abnormal pulmonary function Acute myocardial infarction Congestive heart failure (< 1 month) History of inflammatory bowel disease Medical patient at bed rest Age 61-74 Arthroscopic surgery Major open surgery (> 45 min) Laparoscopic surgery (> 45 min) Malignancy Confined to bed (> 72 hours) Immobilizing plaster cast Central venous access Age >= 75 History of VTE Family history of VTE Factor V Leiden Prothrombin [id number] Lupus anticoagulant Anticardiolipin antibodies Elevated serum homocysteine Heparin-induced thrombocytopenia Other congenital or acquired thrombophilia Stroke (< 1 month) Elective arthroplasty Hip, pelvis, or leg fracture Acute spinal cord injury (< 1 month) Prophylaxis Regimen: Total Risk Factor Score Risk Level Prophylaxis Regimen 0-1 Low Early ambulation 2 Moderate Order ONE of the following: *Sequential Compression Device (SCD) *Heparin 5000 units SQ BID 3-4 Higher Order ONE of the following medications: *Heparin 5000 units SQ TID *Enoxaparin/Lovenox 40 mg SQ daily (WT < 150 kg, CrCl > 30 mL/min) *Enoxaparin/Lovenox 30 mg SQ daily (WT < 150 kg, CrCl > 10-29 mL/min) *Enoxaparin/Lovenox 30 mg SQ BID (WT < 150 kg, CrCl > 30 mL/min) AND/OR *Sequential Compression Device (SCD) 5 or more Highest Order ONE of the following medications: *Heparin 5000 units SQ TID (Preferred with Epidurals) *Enoxaparin/Lovenox 40 mg SQ daily (WT < 150 kg, CrCl > 30 mL/min) *Enoxaparin/Lovenox 30 mg SQ daily (WT < 150 kg, CrCl > 10-29 mL/min) *Enoxaparin/Lovenox 30 mg SQ BID (WT < 150 kg, CrCl > 30 mL/min) AND *Sequential Compression Device (SCD) Assessment and Plan - Assessment and Plan A/P: AMS METABOLIC ENCEPHALOPATHY UTI- IV ROCEPHIN, MONITOR CULTURES HYPOKALEMIA- REPLACE IV, FOLLOWUP LABS. BMP QD X TWO. [facility] THAN[facility] FOR THE CONSULT H&P: Quality - VTE Deep Vein Thrombosis/Pulmonary Embolism Present on Admission: No
[2018-11-07] MEDS ORDERED: Morphine Inj 4 MG/ML Vial IM PRN (16:26)
[2018-11-07] MEDS ORDERED: Sodium Chloride 0.9% 2 ML Flush PRN IV.FLUSH (16:28)
[2018-11-07] MEDS: KCL 40 mEq/D5W/NaCl 0.9% Inj 1,000 ML IV.SIG SCH (16:31)
[2018-11-07] MEDS: SODIUM CHLOR 0.9% IV.SIG SCH (19:51)
[2018-11-07] MEDS: CEFTRIAXONE IV.SIG SCH (19:51)
[2018-11-07] MEDS: Sodium Chloride 0.9% 2 ML Flush BID IV.FLUSH SCH (21:44)
[2018-11-07] MEDS: QUEtiapine 25 MG Tablet PO SCH (21:44)
[2018-11-08] MEDS: KCL 40 mEq/D5W/NaCl 0.9% Inj 1,000 ML IV.SIG SCH ×2 (05:49→18:00)
[2018-11-08] MEDS ORDERED: Haloperidol Inj 5 MG/ML Ampul ONE (08:42)
--- NOTE | 2018-11-08 09:04 | P.PNFP ---
Subjective Interval history: agitated, spitting and coughing at staff. up and menacing. discussed with nursing. Results - Labs Result diagrams: 11/06/18 11:20 11/07/18 06:49 Abnormal lab results 11/06/18 Range/Units 14:25 Urine Clarity Hazy H (Clear) Urine Nitrate Positive H (Negative) Ur Leukocyte Esterase Trace H (Negative) Urine WBC 15 H (0-5) /hpf Urine Bacteria Moderate H (None) /hpf Urine Mucus Few H (Occasional) /lpf Urine 11/06/18 Range/Units 14:25 Urine Color Yellow (Yellw/Straw) Urine Clarity Hazy H (Clear) Urine pH 5.0 (5.0-8.5) Ur Specific [place] 1.016 (1.002-1.035) Urine Protein Negative (Neg-Trace) mg/dL Urine Glucose (UA) Negative (Negative) mg/dL Physical Exam Vital signs: Vital Signs 11/07/18 12:56 11/07/18 18:58 11/07/18 21:35 Temperature 98.4 F Pulse Rate 67 82 82 Respiratory Rate 16 18 18 Blood Pressure 146/80 H Pulse Oximetry 93 L 11/08/18 06:00 Temperature 97.6 F Pulse Rate 72 Respiratory Rate 18 Blood Pressure 153/103 H Pulse Oximetry 94 L Intake & Output 11/07/18 11/08/18 11/08/18 18:59 06:59 18:59 Intake Total 100 / 100 660 / 660 0 / 0 Balance 100 / 100 660 / 660 0 / 0 Intake: IV 100 / 100 200 / 200 KCl 20 mEq Premix Inj 20 meq In 100 / 100 100 / 100 100 ml @ 50 mls/hr IV.SIG Q2H [facility] Rx#:[id number] Rocephin Inj 1,000 MG In NS Inj 100 / 100 100 ML @ 100 mls/hr IV.SIG Q24H [facility] Rx#:[id number] Oral 360 / 360 0 / 0 Oral Supplement 100 / 100 Other: # Voids 2 # Bowel Movements 0 - Constitutional thin, cachectic, chronically ill appearing, disheveled, combative, agitated - Routine HEENT Exam Eye: Present: EOMI - Routine Neurological Exam Present: altered mental status, abnormal gait, moving all extremities - Detailed Neurological Exam: Coma Scale Eye Opening: Spontaneous Verbal Response: Confused - Routine Psychiatric Exam Present: agitated, manic Assessment and Plan - Assessment and Plan A/P: AMS- Due to exacerbation of underlying psychosis. METABOLIC ENCEPHALOPATHY UTI- IV ROCEPHIN, MONITOR CULTURES HYPOKALEMIA- REPLACED IV, FOLLOWUP LABS. BMP QD X TWO. Refusing labs, discussed with nursing to retry. PSYCHOSIS- PER [facility] HTN- start clonidine patch as she is refusing po and this may help with agitation.
[2018-11-08] MEDS ORDERED: Haloperidol Inj 5 MG/ML Ampul IM ONE (10:00)
[2018-11-08] MEDS: Escitalopram 10 MG Tablet PO SCH (10:31)
[2018-11-08] MEDS: Propafenone 150 MG Tablet PO SCH ×3 (10:31→17:19)
[2018-11-08] MEDS: dilTIAZem 30 MG Tablet PO SCH ×3 (10:31→17:19)
[2018-11-08] MEDS: Sodium Chloride 0.9% 2 ML Flush BID IV.FLUSH SCH ×2 (10:31→21:23)
--- NOTE | 2018-11-08 14:12 | P.CONPSY ---
Provisional Diagnosis Admission Date: November 06, 2018 15:30 [place] I.: Dementia with behavioral disturbances Kings[place] III.: Urinary tract infection History of Present Illness Service: Psychiatry Consult date: 11/08/18 Requesting Physician: Sanjay Garzon Reason for Consult: Second opinion petition supporting [email or web address] Primary Care Provider: Leobardo Pettit MD Chief Complaint: AMS History of Present Illness: Patient is a 78-year-old white female admitted to Dr. Garzon service under the Kennedy act Dr. Garzon is signed first opinion petition supporting [email or web address]. I agree. Patient meets criteria. I will cosign second opinion petition supporting [employer] act. Patient seen by me with sitter patient somewhat agitated thin slender disheveled white female diffusely confused disorganized unable to give any specific answer to any question. Review of Systems unobtainable due to mental condition PMFSH - History History Provided By: Patient, Medical Record - Medical History Medical History: Medical History (Last Reviewed 11/06/18 @ 17:26 by GERSON Degroot) Altered mental status, unspecified Alzheimers disease Cardiac arrhythmia Generalized anxiety disorder Hypertension Major depressive disorder, recurrent Surgical history unknown Unspecified dementia with behavioral disturbance - Family History Family History: Family History (Last Updated 09/21/18 @ 17:26 by GERSON Love) Other Unknown family medical history - Tobacco History Second Hand Smoke Exposure: No Tobacco Use In Past 30 Days: No Smoking Status: Never smoker - Alcohol History How Often Do You Have a Drink Containing Alcohol: Never - Substance Use History Substance History: No History of Abuse - Travel History Recent Travel in the [facility] [email or web address] Within the Last 8 Weeks: No Recent Travel Out of the Country Within the Last 8 Weeks: No - Immunization History Tetanus Immunization: Unable to Assess Medications and Allergies Active Medications: Active Medications Acetaminophen (Tylenol) 650 mg PO Q4HR PRN PRN Reason: Fever Al Hydrox/Mg Hydrox/Simethicone (Mag-Al Plus Susp Liq) 30 ml PO Q6H PRN PRN Reason: DYSPEPSIA Al Hydroxide/Mg Hydroxide (Milk Of Magnesia Liq) 30 ml PO Q12H PRN PRN Reason: Mild Constipation Albuterol (Duoneb Neb (Zain)) 1 ampul NEB QID NEB ZAIN Last Admin: 11/08/18 11:35 Dose: Not Given Clonidine HCl (Catapres) 0.1 mg PO Q6H PRN PRN Reason: HYPERTENSION Clonidine HCl (Catapress-Tts 0.1 Mg Patch.7d) 1 patch T-DERMAL Q7D [facility] Last Admin: 11/08/18 10:40 Dose: 1 patch Cyanocobalamin (Vitamin B12) 1,000 mcg PO DAILY [facility] Last Admin: 11/08/18 10:32 Dose: Not Given Diltiazem HCl (Cardizem) 30 mg PO TID [facility] Last Admin: 11/08/18 12:14 Dose: Not Given Enalaprilat (Vasotec Inj) 2.5 mg IV.PUSH Q6H PRN PRN Reason: HYPERTENSION Escitalopram Oxalate (Lexapro) 10 mg PO DAILY [facility] Last Admin: 11/08/18 10:31 Dose: Not Given Haloperidol Lactate (Haldol Inj) 2 mg IM HS [facility] Hydroxyzine Pamoate (Vistaril) 25 mg PO TID [facility] Last Admin: 11/08/18 12:14 Dose: Not Given Potassium Chloride/Dextrose/Sod Cl (D5w/Ns + Kcl 40 Meq Inj) 1,000 mls @ 75 mls /hr IV.SIG .[id number] [facility] Last Admin: 11/08/18 05:49 Dose: 75 mls/hr Ceftriaxone Sodium 1,000 mg/ (Sodium Chloride) 100 mls @ 100 mls/hr IV.SIG Q24H [facility] Last Infusion: 11/07/18 21:00 Dose: Infused Memantine (Namenda) 10 mg PO DAILY [facility] Last Admin: 11/08/18 10:31 Dose: Not Given Morphine Sulfate (Morphine Inj) 4 mg IM Q6H PRN PRN Reason: PAIN SCALE 1 TO 10 Last Admin: 11/07/18 16:42 Dose: 4 mg Oseltamivir Phosphate (Tamiflu) 75 mg PO BID [facility] Stop: 11/10/18 12:00 Propafenone HCl (Rythmol) 150 mg PO TID [facility] Last Admin: 11/08/18 12:14 Dose: Not Given Quetiapine Fumarate (Seroquel) 50 mg PO HS [facility] Last Admin: 11/07/18 21:44 Dose: Not Given Sodium Chloride (Ns Flush) 2 ml IV.FLUSH BID [facility] Last Admin: 11/08/18 10:31 Dose: Not Given Sodium Chloride (Ns Flush) 2 ml IV.FLUSH PRN PRN PRN Reason: FLUSH AFTER USING IV ACCESS Allergies Allergy/AdvReac Type Severity Reaction Status Date / Time atorvastatin Allergy Unknown Verified 11/06/18 12:29 rosuvastatin [From Crestor] Allergy Unknown Verified 11/06/18 12:29 Home Medications Medication Instructions Recorded Confirmed Type acetaminophen 650 mg PO Q4HR PRN 11/06/18 11/06/18 History cyanocobalamin (vitamin B-12) 1,000 mcg PO DAILY 11/06/18 11/06/18 History [Vitamin B-12] diltiazem HCl 30 mg PO TID 11/06/18 11/06/18 History escitalopram oxalate 10 mg PO DAILY 11/06/18 11/06/18 History hydroxyzine pamoate [Vistaril] 25 mg PO TID 11/06/18 11/06/18 History ipratropium-albuterol 3 ml INHALATION QID 11/06/18 11/06/18 History memantine 10 mg PO DAILY 11/06/18 11/06/18 History oseltamivir [Tamiflu] 75 mg PO BID 11/06/18 11/06/18 History propafenone 150 mg PO TID 11/06/18 11/06/18 History quetiapine 50 mg PO HS 11/06/18 11/06/18 History Exam Vital signs: Vital Signs 11/07/18 18:58 11/07/18 21:35 11/08/18 06:00 Temperature 98.4 F 97.6 F Pulse Rate 82 82 72 Respiratory Rate 18 18 18 Blood Pressure 146/80 H 153/103 H Pulse Oximetry 93 L 94 L Intake & Output 11/07/18 11/08/18 11/08/18 18:59 06:59 18:59 Intake Total 100 / 100 660 / 660 0 / 0 Balance 100 / 100 660 / 660 0 / 0 Intake: IV 100 / 100 200 / 200 KCl 20 mEq Premix Inj 20 meq In 100 / 100 100 / 100 100 ml @ 50 mls/hr IV.SIG Q2H [facility] Rx#:[id number] Rocephin Inj 1,000 MG In NS Inj 100 / 100 100 ML @ 100 mls/hr IV.SIG Q24H [facility] Rx#:[id number] Oral 360 / 360 0 / 0 Oral Supplement 100 / 100 Other: # Voids 2 # Bowel Movements 0 Narrative: Patient somewhat agitated rolling in bed. She is in no acute distress she is in no respiratory distress. Patient is cognitive deficits prevent further assessment. Though she is able to move all 4 extremities without any obvious difficulty Mental Status Examination Appearance: Disheveled Consciousness: Alert Orientation: Person (Unable to assess) Motor Activity: Other (In restraints) Speech: Other (Unable to assess) Language: Other (nonverbal at this time) Fund of Knowledge: Poor Attention and Concentration: Other (Unable to assess) Memory: Impaired Mood: Other (Unable to assess) Affect: Blunt Thought Process & Associations: Other (Unable to assess) Thought Content: Other (Unable to assess) Hallucination Type: Other (Unable to assess) Delusion Type: Other (Unable to assess) Suicidal Ideation: No Suicidal Plan: No Suicidal Intention: No Homicidal Ideation: No Homicidal Plan: No Homicidal Intention: No Insight: Poor Judgment: Poor Assessment and Plan - Assessment (1) Dementia with behavioral disturbance Code(s): F03.91 - Unspecified dementia with behavioral disturbance Status: Acute - Plan Plan: Patient does make criteria for involuntary psychiatric hospitalization thus I will cosign second opinion petition supporting [place] act Justification for Continued Inpatient Stay: At this time patient with decompensated placed on lower level of care Discharge Planning: To be determined (1) Dementia with behavioral disturbance Qualifiers: Dementia type: unspecified type Qualified Code(s): F03.91 - Unspecified dementia with behavioral disturbance
--- NOTE | 2018-11-08 15:18 | P.PNPSY ---
Subjective Remarks: Patient seen for follow up; chart reviewed. Discussion with nursing staff reported that patient continues with agitation and required ETO earlier this morning as she was biting at the IV lying not allowing for IV hydration continues to be alert and oriented only for to person and patient was seen with sitter noted to be somewhat agitated but redirectable after ETO. Patient states that she heard her sister in the hallway. Patient continues with very concrete responses was advised and encouraged to continue with to allow for treatment care which she agreed. Patient later continued to have agitation and required soft restraints to allow for IV treatment which patient received Ativan 0.5 mg IV x1. Discussion with patient's POA (Rachelle) regarding Haldol IM backup if patient refuses quetiapine in the evening as her scheduled dose was reviewed and consented for. Patient continues to require one-to-one observation at this time. Review of Systems All other systems reviewed negative except as stated in HPI Mental Status Examination Appearance: Disheveled Consciousness: Alert Orientation: Person (Unable to assess) Motor Activity: Other (In restraints) Speech: Other (Unable to assess) Language: Other (nonverbal at this time) Fund of Knowledge: Poor Attention and Concentration: Other (Unable to assess) Memory: Impaired Mood: Oppositional Affect: Irritable Thought Process & Associations: Other ([place]) Thought Content: Other Hallucination Type: None Delusion Type: None Suicidal Ideation: No Suicidal Plan: No Suicidal Intention: No Homicidal Ideation: No Homicidal Plan: No Homicidal Intention: No Insight: Poor Judgment: Poor Assessment and Plan - Assessment (1) Dementia with behavioral disturbance Code(s): F03.91 - Unspecified dementia with behavioral disturbance Status: Acute - Plan Plan: Patient continued with confusion, alert oriented only to person. Although patient has neurocognitive deficits secondary to dementia patient likely with ongoing delirium secondary to urinary tract infection. We will start Haldol 2 mg IM at bedtime ONLY if patient refuses quetiapine p.o. EKG pending. Patient to continue recommendations provide medical team, will continue one-to-one observation to allow for care. Patient currently requiring soft restraints to allow IV treatment. Continue to monitor mood and behavior. Discharge planning in progress. Justification for Continued Inpatient Stay: At risk of further decompensation at lower level care. (1) Dementia with behavioral disturbance Qualifiers: Dementia type: unspecified type Qualified Code(s): F03.91 - Unspecified dementia with behavioral disturbance
[2018-11-08 17:25] LABS: Calcium 8.1 mg/dL (8.5-10.1); Carbon Dioxide 26.6 meq/L (21.0-32.0)
[2018-11-08 17:32] LABS: Potassium 2.7 meq/L (3.5-5.1)
[2018-11-08] MEDS: CEFTRIAXONE IV.SIG SCH (18:29)
[2018-11-08] MEDS: SODIUM CHLOR 0.9% IV.SIG SCH (18:29)
[2018-11-08] MEDS: Haloperidol Inj 5 MG/ML Ampul IM SCH (21:21)
[2018-11-08] MEDS: QUEtiapine 25 MG Tablet PO SCH (21:23)
[2018-11-09 08:27] LABS: Calcium 8.3 mg/dL (8.5-10.1); Carbon Dioxide 25.6 meq/L (21.0-32.0); Potassium 3.3 meq/L (3.5-5.1)
[2018-11-09] MEDS: dilTIAZem 30 MG Tablet PO SCH ×3 (08:37→20:41)
[2018-11-09] MEDS: Escitalopram 10 MG Tablet PO SCH (08:37)
[2018-11-09] MEDS: Propafenone 150 MG Tablet PO SCH ×3 (08:38→20:41)
[2018-11-09] MEDS: KCL 40 mEq/D5W/NaCl 0.9% Inj 1,000 ML IV.SIG SCH ×2 (08:50→23:30)
--- NOTE | 2018-11-09 12:21 | P.PNIM ---
Subjective Interval history: Follow-up visit diarrhea, UTI, metabolic encephalopathy, psychosis Patient is resting in bed. manager mobility at bedside. Patient is resting with eyes closed, cooperative with questions and examination. 2 episodes of diarrhea , diffuse generalized abdominal tenderness. Physical Exam Vital signs: Vital Signs 11/08/18 13:35 11/08/18 17:15 11/08/18 21:12 Temperature 99.3 F Pulse Rate 87 87 60 Respiratory Rate 16 14 Blood Pressure 148/65 H 148/75 H Pulse Oximetry 95 11/09/18 06:00 11/09/18 09:19 Temperature 97.7 F Pulse Rate 75 75 Respiratory Rate 18 16 Blood Pressure 136/65 Pulse Oximetry 93 L Intake & Output 11/08/18 11/09/18 11/09/18 18:59 06:59 18:59 Intake Total 60 / 60 1220 / 1220 Balance 60 / 60 1220 / 1220 Intake: IV 1000 / 1000 D5W/NS + KCL 40 mEq Inj 1,000 1000 / 1000 ML @ 75 mls/hr IV.SIG .[id number] [facility] Rx#:[id number] Oral 60 / 60 120 / 120 Oral Supplement 100 / 100 Other: # Urine Diapers 2 Date of Last Bowel Movement 11/08/18 11/08/18 # Bowel Movements 1 Constitutional no acute distress and cooperative Routine HEENT Exam Head: Present normocephalic and atraumatic Eye: Present PERRL ENT: Present mucous membranes moist Routine Neck Exam Present supple, full ROM and trachea midline; Absent JVD Routine Respiratory Exam Present CTA bilaterally; Absent accessory muscle use and wheezes Routine Cardiovascular Exam Present RRR, S1 and S2; Absent murmur Routine Abdominal Exam Present soft and tenderness; Absent distended Routine Extremities Exam Present pulses intact; Absent cyanosis and edema Routine Skin Exam Present intact and dry Routine Neurological Exam Present alert and CN II-XII intact; Absent sensory deficit and motor deficit Routine Psychiatric Exam Present cooperative Results Labs CBC & Chem 7: 11/06/18 11:20 11/09/18 07:55 Labs: Microbiology 11/06/18 14:25 Catheterized Urine Urine Culture - Final Citrobacter koseri Assessment and Plan Plan Patient is a 78 year old female who was recently admitted to [facility]. She barricaded herself and ended up coming in under a Kennedy Act. She returned to [facility] and was brought back under Kennedy act for combative behavior and psychosis. Psychosis -primary mgmt per psychiatric team Urinary tract infection -urine culture with citrobacter koseri -sensitive to Ceftriaxone and we will continue this Metabolic encephalopathy -likely secondary to UTI -improved Hypokalemia -replace and repeat BMP in am -continue IV fluids with KCL -monitor Hypertension -continue Clonidine patch, refusing PO Discussed with: RN, patient, supervising MD Code Status: Full Discharge Planning: per primary team Progress Note: Quality VTE Deep Vein Thrombosis/Pulmonary Embolism Present on Admission: No
[2018-11-09] MEDS ORDERED: Potassium Bicarbonate 25 MEQ Effervescent Tablet PO ONE (12:45)
[2018-11-09] MEDS: Sodium Chloride 0.9% 2 ML Flush BID IV.FLUSH SCH ×2 (13:11→22:41)
--- NOTE | 2018-11-09 18:46 | P.PNPSY ---
Subjective Remarks: Reviewed electronic medical records and discussed case with staff. Follow-up was conducted in the patient's room with her one-to-one sitter present. Patient remains in medical restraints and continues to be grossly confused in all spheres. However, she is more verbal than when last I saw her. Mental Status Examination Appearance: Disheveled Consciousness: Alert Orientation: Person (Unable to assess) Motor Activity: Other (In restraints) Speech: Other (Unable to assess) Language: Other (nonverbal at this time) Fund of Knowledge: Poor Attention and Concentration: Other (Unable to assess) Memory: Impaired Mood: Oppositional Affect: Irritable Thought Process & Associations: Other ([place]) Thought Content: Other Hallucination Type: None Delusion Type: None Suicidal Ideation: No Suicidal Plan: No Suicidal Intention: No Homicidal Ideation: No Homicidal Plan: No Homicidal Intention: No Insight: Poor Judgment: Poor Assessment and Plan - Assessment (1) Dementia with behavioral disturbance Code(s): F03.91 - Unspecified dementia with behavioral disturbance Status: Acute - Plan Plan: Patient will be reevaluated by the attending psychiatrist. Continue with current treatment plan. Patient is continuing to be treated with IV antibiotics for her urinary tract infection. Justification for Continued Inpatient Stay: Moving this patient to a less restrictive environment would likely result in decompensation. (1) Dementia with behavioral disturbance Qualifiers: Dementia type: unspecified type Qualified Code(s): F03.91 - Unspecified dementia with behavioral disturbance
[2018-11-09] MEDS: CEFTRIAXONE IV.SIG SCH (21:29)
[2018-11-09] MEDS: SODIUM CHLOR 0.9% IV.SIG SCH (21:29)
[2018-11-09] MEDS: Oseltamivir Phosphate 75 MG Capsule PO SCH (21:40)
[2018-11-09] MEDS: QUEtiapine 25 MG Tablet PO SCH (21:41)
[2018-11-09] MEDS: Haloperidol Inj 5 MG/ML Ampul IM SCH (21:41)
[2018-11-10] MEDS: dilTIAZem 30 MG Tablet PO SCH ×3 (09:19→19:19)
[2018-11-10] MEDS: Propafenone 150 MG Tablet PO SCH ×3 (09:19→19:18)
[2018-11-10] MEDS: Escitalopram 10 MG Tablet PO SCH (09:20)
[2018-11-10] MEDS: Sodium Chloride 0.9% 2 ML Flush BID IV.FLUSH SCH ×2 (09:20→21:39)
[2018-11-10] MEDS: Oseltamivir Phosphate 75 MG Capsule PO SCH (09:20)
[2018-11-10 10:59] LABS: Calcium 8.2 mg/dL (8.5-10.1); Carbon Dioxide 25.9 meq/L (21.0-32.0)
[2018-11-10 11:04] LABS: Potassium 2.8 meq/L (3.5-5.1)
[2018-11-10] MEDS ORDERED: Potassium Bicarbonate 25 MEQ Effervescent Tablet PO ONE (11:19)
--- NOTE | 2018-11-10 12:47 | P.PNIM ---
Subjective Interval history: Follow-up visit hypokalemia, diarrhea Patient resting in bed. She remains in bilateral soft cuffs secondary to her attempting to remove medical devices. Patient does not allow for touching as part of examination. She has her eyes closed and is talking but incomprehensible. No acute distress noted. Physical Exam Vital signs: Vital Signs 11/09/18 18:31 11/09/18 21:18 11/10/18 06:00 Temperature 98.6 F 97.2 F L Pulse Rate 82 68 59 L Respiratory Rate 16 18 16 Blood Pressure 150/99 H 154/65 H Pulse Oximetry 94 L 98 11/10/18 09:04 Temperature Pulse Rate 59 L Respiratory Rate 16 Blood Pressure Pulse Oximetry Intake & Output 11/09/18 11/10/18 11/10/18 18:59 06:59 18:59 Intake Total 680 / 680 1100 / 1100 Output Total 3 / 3 Balance 677 / 677 1100 / 1100 Intake: IV 1100 / 1100 D5W/NS + KCL 40 mEq Inj 1,000 1000 / 1000 ML @ 75 mls/hr IV.SIG .[id number] [facility] Rx#:[id number] Rocephin Inj 1,000 MG In NS Inj 100 / 100 100 ML @ 100 mls/hr IV.SIG Q24H [facility] Rx#:[id number] Oral 680 / 680 Output: Urine 3 / 3 Other: Date of Last Bowel Movement 11/09/17 11/10/18 # Bowel Movements 3 Narrative: GENERAL: elderly female, no acute distress, confused SKIN: Warm and dry. HEAD: Normocephalic, atraumatic EYES: No scleral icterus. No injection or drainage. NECK: Supple, trachea midline. No JVD or lymphadenopathy. CARDIOVASCULAR: Regular rate and rhythm without murmurs, gallops, or rubs. RESPIRATORY: Breath sounds equal bilaterally. No accessory muscle use. GASTROINTESTINAL: Abdomen soft, non-tender, nondistended. MUSCULOSKELETAL: No cyanosis, or edema. Results Labs CBC & Chem 7: 11/06/18 11:20 11/10/18 10:07 Assessment and Plan Plan Patient is a 78 year old female who was recently admitted to [facility]. She barricaded herself and ended up coming in under a Kennedy Act. She returned to SN[facility] and was brought back under Kennedy act for combative behavior and psychosis. Psychosis -primary mgmt per psychiatric team Urinary tract infection -urine culture with citrobacter koseri -sensitive to Ceftriaxone and we will continue this (start 11/09/18) Metabolic encephalopathy -likely secondary to UTI -improved Hypokalemia -replace and repeat BMP in am -continue IV fluids with KCL -check Mg level Hypertension -continue Clonidine patch, refusing PO Discussed with: RN, patient, supervising MD Discussed with: RN, supervising MD Code Status: Full Discharge Planning: per primary team Progress Note: Quality VTE Deep Vein Thrombosis/Pulmonary Embolism Present on Admission: No
[2018-11-10] MEDS: KCL 40 mEq/D5W/NaCl 0.9% Inj 1,000 ML IV.SIG SCH (13:20)
--- NOTE | 2018-11-10 15:47 | P.PNPSY ---
Subjective Remarks: Reviewed electronic medical record and discussed with nursing staff. Rounded with NATALIA Zhong. Patient in soft restraints with one-to-one sitter. Patient is grossly disorganized. She mumbles and speaks in a low tone. Potassium has been low at 2.8 replaced and monitored. She is easily redirected and will stop attempting to move off the bed when given attention. Review of Systems All other systems reviewed negative except as stated in HPI Mental Status Examination Appearance: Disheveled Consciousness: Alert Orientation: Person (Unable to assess) Motor Activity: Other (In restraints) Speech: Other (Unable to assess) Language: Other (nonverbal at this time) Fund of Knowledge: Poor Attention and Concentration: Other (Unable to assess) Memory: Impaired Mood: Anxious Affect: Anxious Thought Process & Associations: Disorganized Thought Content: Other (unable to determine due to level of dementia ) Hallucination Type: None Delusion Type: None Suicidal Ideation: No Suicidal Plan: No Suicidal Intention: No Homicidal Ideation: No Homicidal Plan: No Homicidal Intention: No Insight: Poor Judgment: Poor Assessment and Plan - Assessment (1) Dementia with behavioral disturbance Code(s): F03.91 - Unspecified dementia with behavioral disturbance Status: Acute (2) UTI (urinary tract infection) Code(s): N39.0 - Urinary tract infection, site not specified Status: Acute - Plan Plan: 11/10/18 continue one - to - one monitoring. Continue current treatment plan. 11/09/18Patient will be reevaluated by the attending psychiatrist. Continue with current treatment plan. Patient is continuing to be treated with IV antibiotics for her urinary tract infection. Justification for Continued Inpatient Stay: Moving patient to a less restrictive environment may result in her decompensation. (1) Dementia with behavioral disturbance Qualifiers: Dementia type: unspecified type Qualified Code(s): F03.91 - Unspecified dementia with behavioral disturbance (2) UTI (urinary tract infection) Qualifiers: Urinary tract infection type: site unspecified Hematuria presence: without hematuria Qualified Code(s): N39.0 - Urinary tract infection, site not specified
[2018-11-10] MEDS: QUEtiapine 25 MG Tablet PO SCH (21:39)
[2018-11-10] MEDS: Haloperidol Inj 5 MG/ML Ampul IM SCH (21:42)
[2018-11-11] MEDS: KCL 40 mEq/D5W/NaCl 0.9% Inj 1,000 ML IV.SIG SCH ×2 (01:18→15:19)
--- NOTE | 2018-11-11 07:35 | P.PNFP ---
Subjective Interval history: ongoing psychosis taking meds some discussed with nursing Results - Labs Result diagrams: 11/06/18 11:20 11/10/18 15:38 Abnormal lab results 11/09/18 11/10/18 11/10/18 Range/Units 16:20 10:07 15:38 Sodium 149 H (136-145) meq/L Potassium 2.8 L* 2.7 L* (3.5-5.1) meq/L Chloride 115 H (98-107) meq/L Estimated GFR 76 L (>89) mL/min Random Glucose 110 H (74-106) mg/dL Calcium 8.2 L (8.5-10.1) mg/dL Stool C.difficile Ag Positive H (Negative) BMP 11/10/18 11/10/18 10:07 15:38 Sodium 149 H Potassium 2.8 L* 2.7 L* Chloride 115 H Carbon Dioxide 25.9 BUN 7 Creatinine 0.74 Calcium 8.2 L Physical Exam Vital signs: Vital Signs 11/10/18 09:04 11/10/18 13:24 11/10/18 19:18 Temperature 97.6 F Pulse Rate 59 L 59 L 73 Respiratory Rate 16 16 16 Blood Pressure 168/99 H Pulse Oximetry 93 L 11/11/18 06:32 Temperature 97.5 F L Pulse Rate 64 Respiratory Rate Blood Pressure 167/79 H Pulse Oximetry Intake & Output 11/10/18 11/11/18 11/11/18 18:59 06:59 18:59 Intake Total 1200 / 1200 1000 / 1000 Balance 1200 / 1200 1000 / 1000 Intake: IV 1000 / 1000 1000 / 1000 D5W/NS + KCL 40 mEq Inj 1,000 1000 / 1000 1000 / 1000 ML @ 75 mls/hr IV.SIG .[id number] [facility] Rx#:[id number] Oral 100 / 100 Tube Feeding 100 / 100 Other: # Voids 4 Date of Last Bowel Movement 11/10/18 11/10/18 - Constitutional chronically ill appearing, somnolent - Routine HEENT Exam Head: Present: normocephalic Eye: Present: EOMI - Routine Neck Exam Present: supple - Routine Respiratory Exam Present: CTA bilaterally - Routine Cardiovascular Exam Present: RRR, S1, S2 - Routine Abdominal Exam Present: soft, normoactive bowel sounds - Routine Exam Perineum Description: Intact - Routine Extremities Exam Present: normal capillary refill - Routine Skin Exam Present: intact - Routine Neurological Exam Present: altered mental status - Detailed Neurological Exam: Coma Scale Eye Opening: To sound Verbal Response: Confused - Routine Psychiatric Exam Present: unable to assess Assessment and Plan - Assessment and Plan A/P: AMS- Due to exacerbation of underlying psychosis. METABOLIC ENCEPHALOPATHY UTI- stop iv abx, asymptomatic now, C DIf: stopped abx, vanco po Cough: start duonebs HYPOKALEMIA- REPLACED IV, FOLLOWUP LABS. BMP, [facility]- [facility]- started clonidine patch as she is refusing po and this may help with agitation.
[2018-11-11] MEDS: Escitalopram 10 MG Tablet PO SCH (09:16)
[2018-11-11] MEDS: Propafenone 150 MG Tablet PO SCH ×3 (09:16→17:01)
[2018-11-11] MEDS: Sodium Chloride 0.9% 2 ML Flush BID IV.FLUSH SCH ×2 (09:16→21:00)
[2018-11-11] MEDS: dilTIAZem 30 MG Tablet PO SCH ×3 (09:16→17:01)
--- NOTE | 2018-11-11 16:01 | P.TTN ---
- Patient Problems Problems: 1. Discharge planning 2. Medication compliance 3. Knowledge deficit 4. Lack of coping skills - Progress Toward Goals Provider Present: Dr. Gracy Garzon Provider Input: 11/11/2018; per doctor, patient continue to require stablization with mood and mediation. Nurse(s) Present: 11/11/2018 Nurse Input: 11/11/2018; per nurse patient require coaching and redirection with meals, meds and behavior Psychiatric Counselors Present: Staci Ceballos [facility] Psychiatric Therapist Input: 11/11/2018; counselor will fax clinical updates to facility. Group Spec/RT/OT/ANNE Present: OMID Whitten Group Spec/RT/OT/ANNE Input: 11/11/2018;per OT patient is unable emotionally to participate with groups or activities - Documentation Teaching Recipient: Patient
--- NOTE | 2018-11-11 16:47 | ECG ---
Date Performed: 11/10/2018 Time Performed: 14:25:43 PTAGE: 78 years EKG: Sinus rhythm WITH HIGH GRADE AV BLOCK POSSIBLE RIGHT VENTRICULAR CONDUCTION DELAY ANTEROSEPTAL MYOCARDIAL INFARCT ION , PROBABLY OLD MODERATE T-WAVE ABNORMALITY, CONSIDER LATERAL ISCHEMIA ABNORMAL ECG Clinical corre lation recommended. NO PREVIOUS TRACING DOCTOR: Tony Staton Interpretating Date/Time 11/11/2018 16:46:31
--- NOTE | 2018-11-11 17:02 | P.PNPSY ---
Subjective Remarks: Patient seen for follow up; chart reviewed. Discussion with nursing staff reported that patient continues to require soft restraints as she continues to pull at IV line and interfere with IV treatment. Patient also being managed for C Diff. Patient has been noted to be drinking Ensure but minimal food intake. She was found lying on hospital bed, calm and cooperative, in soft restraints. Noted with confusion, nonsensical statements but able to engage in interview today compared to initial presentation where patient would have no interaction. Review of Systems All other systems reviewed negative except as stated in HPI Mental Status Examination Appearance: Appropriate ([facility]), Disheveled Consciousness: Alert Orientation: Person (Unable to assess) Motor Activity: Other (In soft restraints) Speech: Unremarkable Language: Other (rambling) Fund of Knowledge: Poor Attention and Concentration: Inadequate Memory: Impaired Mood: Anxious Affect: Anxious Thought Process & Associations: Disorganized Thought Content: Other (unable to determine due to level of dementia ) Hallucination Type: None Delusion Type: None Suicidal Ideation: No Suicidal Plan: No Suicidal Intention: No Homicidal Ideation: No Homicidal Plan: No Homicidal Intention: No Insight: Poor Judgment: Poor Assessment and Plan - Assessment (1) Dementia with behavioral disturbance Code(s): F03.91 - Unspecified dementia with behavioral disturbance Status: Acute - Plan Plan: Patient continues with confusion from dementia but also with concurrent infectious process which has also affected her cognition and behavior. Patient noted with less aggressive behavior but due to disorganization continues to require soft restraints to avoid patient tampering with IV line and treatment. Continues with inconsistency with adherence to PO mediations. Continue current treatment, continue to monitor mood and behavior. Hospitalist input appreciated. Discharge planning in progress. Justification for Continued Inpatient Stay: At risk for further decompensation at lower level of care. (1) Dementia with behavioral disturbance Qualifiers: Dementia type: unspecified type Qualified Code(s): F03.91 - Unspecified dementia with behavioral disturbance
[2018-11-11] MEDS: QUEtiapine 25 MG Tablet PO SCH (21:00)
[2018-11-12] MEDS: Haloperidol Inj 5 MG/ML Ampul IM SCH ×2 (01:13→20:53)
[2018-11-12] MEDS: KCL 40 mEq/D5W/NaCl 0.9% Inj 1,000 ML IV.SIG SCH (03:25)
[2018-11-12 07:14] LABS: Baso % (Auto) 0.8 % (0.0-2.0); Eos # (Auto) 0.1 th/mm3 (0.0-0.4); Eos % (Auto) 2.4 % (0.0-4.0); Hematocrit 34.9 % (35.0-46.0); Hemoglobin 12.2 gm/dL (11.6-15.3); Lymph # (Auto) 1.3 th/mm3 (1.0-4.8); Lymph % (Auto) 21.2 % (9.0-44.0); Mean Corpuscular HGB Conc 34.9 % (32.0-36.0); Mean Corpuscular Volume 88.7 fL (80.0-100.0); Mean Platelet Volume 6.3 fL (7.0-11.0); Mono # (Auto) 0.6 th/mm3 (0.0-0.9); Mono % (Auto) 9.6 % (0.0-8.0); Neut # (Auto) 3.9 th/mm3 (1.8-7.7); Platelet Count 250 th/mm3 (150-450); Red Blood Count 3.94 mil/mm3 (4.00-5.30); Red Cell Distribution Width 13.1 % (11.6-17.2)
[2018-11-12 07:55] LABS: Calcium 8.6 mg/dL (8.5-10.1); Carbon Dioxide 26.3 meq/L (21.0-32.0)
[2018-11-12 08:05] LABS: Potassium 2.9 meq/L (3.5-5.1)
[2018-11-12] MEDS: Escitalopram 10 MG Tablet PO SCH ×2 (09:12→15:05)
[2018-11-12] MEDS: Propafenone 150 MG Tablet PO SCH ×3 (09:22→20:54)
[2018-11-12] MEDS: dilTIAZem 30 MG Tablet PO SCH ×4 (09:25→20:54)
--- NOTE | 2018-11-12 10:10 | P.PNFP ---
Subjective Interval history: pulling out ivs, taking more po, looks better, discussed with nursing Results - Labs Result diagrams: 11/12/18 06:35 11/12/18 06:35 Abnormal lab results 11/12/18 11/12/18 Range/Units 06:35 06:35 RBC 3.94 L (4.00-5.30) mil/mm3 Hct 34.9 L (35.0-46.0) % MPV 6.3 L (7.0-11.0) fL [place] % (Auto) 9.6 H (0.0-8.0) % Sodium 149 H (136-145) meq/L Potassium 2.9 L* (3.5-5.1) meq/L Chloride 116 H (98-107) meq/L Estimated GFR 71 L (>89) mL/min Short CBC 11/12/18 Range/Units 06:35 WBC 6.0 (4.0-11.0) th/mm3 Hgb 12.2 (11.6-15.3) gm/dL Hct 34.9 L (35.0-46.0) % Plt Count 250 (150-450) th/mm3 [facility] 11/12/18 06:35 Sodium 149 H Potassium 2.9 L* Chloride 116 H Carbon Dioxide 26.3 BUN 11 Creatinine 0.78 Calcium 8.6 Physical Exam Vital signs: Vital Signs 11/11/18 17:29 11/12/18 06:00 Temperature 98.8 F 98.1 F Pulse Rate 73 53 L Respiratory Rate 18 17 Blood Pressure 138/67 169/80 H Pulse Oximetry 94 L 94 L Intake & Output 11/11/18 11/12/18 11/12/18 18:59 06:59 18:59 Intake Total 2440 / 2440 1081 / 1081 240 / 240 Balance 2440 / 2440 1081 / 1081 240 / 240 Intake: IV 1000 / 1000 841 / 841 D5W/NS + KCL 40 mEq Inj 1,000 1000 / 1000 841 / 841 ML @ 75 mls/hr IV.SIG .[id number] COUNTS INCLUDE 234 BEDS AT [facility] Rx#:[id number] Oral 1440 / 1440 240 / 240 240 / 240 Other: # Urine Diapers 2 2 Date of Last Bowel Movement 11/11/18 # Bowel Movements 2 - Constitutional no acute distress, chronically ill appearing - Routine HEENT Exam Head: Present: normocephalic Eye: Present: EOMI - Routine Neck Exam Present: supple, full ROM - Routine Respiratory Exam Present: CTA bilaterally - Routine Cardiovascular Exam Present: RRR, S1, S2 - Routine Abdominal Exam Present: soft, normoactive bowel sounds - Routine Extremities Exam Present: normal capillary refill - Routine Skin Exam Present: intact - Routine Neurological Exam Present: alert, moving all extremities - Detailed Neurological Exam: Coma Scale Eye Opening: Spontaneous Verbal Response: Confused Motor Response: Obey commands Zabrina Coma Scale Total: 14 - Routine Psychiatric Exam Present: unable to assess Assessment and Plan - Assessment and Plan A/P: AMS- Due to exacerbation of underlying psychosis. METABOLIC ENCEPHALOPATHY UTI- stopped iv abx, asymptomatic now, C DIf: stopped abx, vanco po Cough: start duonebs HYPOKALEMIA- FOLLOWUP LABS. BMP, stop all IV lines, started kcl po bid, [facility]OS[facility]- [facility]- started clonidine patch as she is refusing po and this may help with agitation.
[2018-11-12] MEDS ORDERED: Potassium Chlor 20 mEq Premix 20 MEQ/100 ML PIGGYBACK IV.SIG PRN (11:00)
[2018-11-12] MEDS: Sodium Chloride 0.9% 2 ML Flush BID IV.FLUSH SCH ×2 (11:00→21:00)
[2018-11-12] MEDS: Potassium Chloride Liq 20 MEQ/15 ML UDC PO SCH ×2 (11:32→21:00)
--- NOTE | 2018-11-12 15:07 | P.PNPSY ---
Subjective Remarks: Patient seen for follow-up, chart reviewed. Discussion with nursing staff reported that patient continues with confusion, noted with low potassium, slept last night. Patient was found sitting up on hospital bed, noted to be alert and engaging in interview but noted with rambling throughout interview. Patient spoke of her work and now being retired, most of which was not comprehensbile. She would make random statements such as recalling living in [place], [place]. She has no longer required further ETOs or restraints. Will continue current treatment, continue to monitor mood behavior. Discharge planning in progress. Review of Systems All other systems reviewed negative except as stated in HPI Mental Status Examination Appearance: Appropriate ([facility]) Consciousness: Alert Orientation: Person (Unable to assess) Motor Activity: Other (In soft restraints) Speech: Unremarkable Language: Other (rambling) Fund of Knowledge: Poor Attention and Concentration: Inadequate Memory: Impaired Mood: Anxious Affect: Appropriate Thought Process & Associations: Disorganized Thought Content: Other (concrete, rambling at times) Hallucination Type: None Delusion Type: None Suicidal Ideation: No Suicidal Plan: No Suicidal Intention: No Homicidal Ideation: No Homicidal Plan: No Homicidal Intention: No Insight: Poor Judgment: Poor Assessment and Plan - Assessment (1) Dementia with behavioral disturbance Code(s): F03.91 - Unspecified dementia with behavioral disturbance Status: Acute - Plan Plan: Patient continues with rambling at times, baseline confusion. She continues to require further medical stabilization but has no longer had any further behavioral dyscontrol; no ETOs or restraints. Patient is more allowing with care. Justification for Continued Inpatient Stay: At risk for further decompensation at lower level of care. (1) Dementia with behavioral disturbance Qualifiers: Dementia type: unspecified type Qualified Code(s): F03.91 - Unspecified dementia with behavioral disturbance
[2018-11-12] MEDS: QUEtiapine 25 MG Tablet PO SCH (21:00)
[2018-11-13] MEDS: Escitalopram 10 MG Tablet PO SCH (08:29)
[2018-11-13] MEDS: dilTIAZem 30 MG Tablet PO SCH ×3 (08:29→19:18)
[2018-11-13] MEDS: Propafenone 150 MG Tablet PO SCH ×3 (08:30→19:18)
[2018-11-13 09:26] LABS: Calcium 8.9 mg/dL (8.5-10.1); Carbon Dioxide 24.1 meq/L (21.0-32.0)
[2018-11-13 09:33] LABS: Potassium 2.6 meq/L (3.5-5.1)
[2018-11-13] MEDS: Potassium Chloride Liq 20 MEQ/15 ML UDC PO SCH ×2 (09:37→20:43)
[2018-11-13] MEDS: Sodium Chloride 0.9% 2 ML Flush BID IV.FLUSH SCH ×2 (09:37→20:43)
--- NOTE | 2018-11-13 09:48 | P.PNFP ---
Subjective Interval history: agitated, min po, psychotic Results - Labs Result diagrams: 11/12/18 06:35 11/13/18 08:45 Abnormal lab results 11/13/18 Range/Units 08:45 Potassium 2.6 L* (3.5-5.1) meq/L Chloride 110 H (98-107) meq/L Estimated GFR 55 L (>89) mL/min BMP 11/13/18 08:45 Sodium 145 Potassium 2.6 L* Chloride 110 H Carbon Dioxide 24.1 BUN 11 Creatinine 0.98 Calcium 8.9 Physical Exam Vital signs: Vital Signs 11/12/18 17:49 11/13/18 06:00 Temperature 98 F 98.0 F Pulse Rate 68 69 Respiratory Rate 20 15 Blood Pressure 171/80 H 165/85 H Pulse Oximetry 96 94 L Intake & Output 11/12/18 11/13/18 11/13/18 18:59 06:59 18:59 Intake Total 480 / 480 240 / 240 Balance 480 / 480 240 / 240 Intake: Oral 480 / 480 240 / 240 Other: # Voids 2 1 # Urine Diapers 2 - Constitutional mild distress, chronically ill appearing - Routine HEENT Exam Head: Present: normocephalic - Routine Neck Exam Present: supple - Routine Respiratory Exam Present: CTA bilaterally - Routine Cardiovascular Exam Present: RRR, S1, S2 - Routine Abdominal Exam Present: soft, normoactive bowel sounds - Routine Extremities Exam Present: full ROM - Routine Skin Exam Present: intact - Routine Neurological Exam Present: alert, altered mental status - Detailed Neurological Exam: Coma Scale Eye Opening: Spontaneous - Routine Psychiatric Exam Present: agitated Assessment and Plan - Assessment and Plan A/P: AMS- Due to exacerbation of underlying psychosis. METABOLIC ENCEPHALOPATHY UTI- stopped iv abx, asymptomatic now, C DIf: stopped abx, vanco po Cough: start duonebs HYPOKALEMIA- FOLLOWUP LABS. BMP, stop all IV lines, started kcl po bid, PSYCHOSIS- PER [facility] HTN- started clonidine patch as she is refusing po and this may help with agitation.
--- NOTE | 2018-11-13 13:32 | P.PNPSY ---
Subjective Remarks: Patient seen for follow-up, chart reviewed. Discussion with nursing staff reported that patient has been refusing medications with poor p.o. intake, continues with hypokalemia currently continue with medical management for C. difficile but has not required any restraints and ETO's no aggressive behavior no episodes of agitation continues with baseline confusion secondary to dementia. Patient was found to ambulate on the unit noted confused likely secondary to neurocognitive deficits from dementia. Patient pleasant to speak with, engaging concretely requiring redirection. Patient continues to have limited cooperation with p.o. intake O but not having any episodes of agitation or aggression. might but no longer meeting inpatient psychiatric criteria at this time patient appears to require further medical stabilization but no longer requiring further inpatient psychiatric hospitalization. Review of Systems All other systems reviewed negative except as stated in HPI Mental Status Examination Appearance: Appropriate ([facility]) Consciousness: Alert Orientation: Person (Unable to assess) Speech: Unremarkable Language: Other (rambling at times) Fund of Knowledge: Poor Attention and Concentration: Inadequate Memory: Impaired Mood: Anxious Affect: Appropriate Thought Process & Associations: Disorganized Thought Content: Other (concrete, rambling at times) Hallucination Type: None Delusion Type: None Suicidal Ideation: No Suicidal Plan: No Suicidal Intention: No Homicidal Ideation: No Homicidal Plan: No Homicidal Intention: No Insight: Poor Judgment: Poor Assessment and Plan - Assessment (1) Dementia with behavioral disturbance Code(s): F03.91 - Unspecified dementia with behavioral disturbance Status: Acute - Plan Plan: Patient this time continues with baseline confusion, no longer required ETO's restraints or having any further episodes of agitation for several days now. Patient will continue to require encouragement to adhere to p.o. intake and medications p.o. and this is likely behavior related to dementia. Patient at this time is not psychotic nor having any behavioral disturbances requiring further psychiatric hospitalization. Plan to have patient transferred to medical service for continued medical manner management. Discharge planning in progress. Justification for Continued Inpatient Stay: At risk of further decompensation at lower level care. (1) Dementia with behavioral disturbance Qualifiers: Dementia type: unspecified type Qualified Code(s): F03.91 - Unspecified dementia with behavioral disturbance
[2018-11-13] MEDS ORDERED: Potassium Chlor 40 mEq Premix 40 MEQ/100 ML PIGGYBACK IV.SIG ONE (14:00)
[2018-11-13] MEDS: KCL 40 mEq/D5W/NaCl 0.9% Inj 1,000 ML IV.SIG SCH ×5 (14:30→19:27)
[2018-11-13] MEDS: Potassium Chlor 20 mEq Premix 20 MEQ/100 ML PIGGYBACK IV.SIG SCH ×3 (17:55→18:36)
[2018-11-13] MEDS: Haloperidol Inj 5 MG/ML Ampul IM SCH (20:41)
[2018-11-13] MEDS: QUEtiapine 25 MG Tablet PO SCH (20:57)
[2018-11-14] MEDS: Escitalopram 10 MG Tablet PO SCH ×2 (08:37→09:20)
[2018-11-14] MEDS: Propafenone 150 MG Tablet PO SCH ×4 (08:37→18:43)
[2018-11-14] MEDS: dilTIAZem 30 MG Tablet PO SCH ×4 (08:37→18:43)
[2018-11-14] MEDS: Potassium Chloride Liq 20 MEQ/15 ML UDC PO SCH ×2 (09:07→22:16)
[2018-11-14] MEDS: Sodium Chloride 0.9% 2 ML Flush BID IV.FLUSH SCH ×2 (09:08→22:17)
[2018-11-14] MEDS: KCL 40 mEq/D5W/NaCl 0.9% Inj 1,000 ML IV.SIG SCH ×2 (09:10→23:43)
--- NOTE | 2018-11-14 15:12 | P.PNPSY ---
Subjective Remarks: Patient seen for follow-up, chart reviewed. Discussion with nursing staff reported that patient continue with poor p.o. intake, no episodes of agitation continue with baseline confusion. Patient was found sitting up in hospital bed not noted to be pulling at IV site, noted to be pleasantly engage in interview with good affect smiling but noted to make some nonsensical statements such as if hand sign writer had gone to the waiting. Patient states sleeping well, no pain reported, states that she is having adequate appetite although as per staff patient has had poor p.o. intake. Patient continues to require much encouragement to take medications by mouth Review of Systems All other systems reviewed negative except as stated in HPI Mental Status Examination Appearance: Appropriate Consciousness: Alert Orientation: Person Speech: Unremarkable Language: Other (rambling at times) Fund of Knowledge: Poor Attention and Concentration: Inadequate Memory: Impaired Mood: Appropriate Affect: Appropriate Thought Process & Associations: Disorganized Thought Content: Other (concrete, rambling at times) Hallucination Type: None Delusion Type: None Suicidal Ideation: No Suicidal Plan: No Suicidal Intention: No Homicidal Ideation: No Homicidal Plan: No Homicidal Intention: No Insight: Poor Judgment: Poor Assessment and Plan - Assessment (1) Dementia with behavioral disturbance Code(s): F03.91 - Unspecified dementia with behavioral disturbance Status: Acute - Plan Plan: Patient continued baseline confusion, but no episodes of agitation or aggressive behavior. Patient continues to require encouragement to take medications by mouth and therefore at this time is receiving treatment through IV line as per hospitalist recommendations for medical stabilization. We will continue current treatment. We will continue to monitor with behavior. Patient is currently awaiting transfer to medical floor once there is bed availability this patient longer continues to require inpatient psychiatric hospitalization but will continue to require medical management at this time. Discharge planning in progress. Justification for Continued Inpatient Stay: At risk of further decompensation at lower level care. (1) Dementia with behavioral disturbance Qualifiers: Dementia type: unspecified type Qualified Code(s): F03.91 - Unspecified dementia with behavioral disturbance
--- NOTE | 2018-11-14 15:55 | P.PNFP ---
Subjective Interval history: not taking meds, spitting out po, nursing asking for hospice eval Results - Labs Result diagrams: 11/12/18 06:35 11/13/18 08:45 Physical Exam Vital signs: Vital Signs 11/13/18 18:00 11/14/18 06:00 Temperature 97.6 F 97.8 F Pulse Rate 65 Respiratory Rate 18 16 Blood Pressure 197/81 H 157/90 H Pulse Oximetry 92 L 93 L Intake & Output 11/13/18 11/14/18 11/14/18 18:59 06:59 18:59 Intake Total 820 / 820 2100 / 2100 1000 / 1000 Balance 820 / 820 2100 / 2100 1000 / 1000 Intake: IV 100 / 100 2100 / 2100 1000 / 1000 D5W/NS + KCL 40 mEq Inj 1,000 2000 / 2000 1000 / 1000 ML @ 75 mls/hr IV.SIG .[id number] RAY Rx#:[id number] KCl 20 mEq Premix Inj 20 meq In 100 / 100 100 / 100 100 ml @ 50 mls/hr IV.SIG Q2H RAY Rx#:[id number] Oral 720 / 720 0 / 0 0 / 0 Oral Supplement 0 / 0 Other: # Voids 2 Date of Last Bowel Movement 11/11/18 - Constitutional mild distress, chronically ill appearing - Routine HEENT Exam Head: Present: normocephalic Eye: Present: EOMI ENT: Present: mucous membranes dry - Routine Neck Exam Present: full ROM - Routine Respiratory Exam Present: CTA bilaterally - Routine Cardiovascular Exam Present: RRR, S1, S2 - Routine Abdominal Exam Present: soft, normoactive bowel sounds - Routine Extremities Exam Present: full ROM - Routine Skin Exam Present: intact - Detailed Neurological Exam: Coma Scale Eye Opening: Spontaneous Verbal Response: Confused - Routine Psychiatric Exam Present: agitated Assessment and Plan - Assessment and Plan A/P: AMS- Due to exacerbation of underlying psychosis. hospice consult. METABOLIC ENCEPHALOPATHY UTI- stopped iv abx, asymptomatic now, C DIf: stopped abx, vanco po Cough: start duonebs HYPOKALEMIA- FOLLOWUP LABS. BMP, stop all IV lines, started kcl po bid, PSYCHOSIS- PER [facility] HTN- started clonidine patch as she is refusing po and this may help with agitation.
[2018-11-14] MEDS: Haloperidol Inj 5 MG/ML Ampul IM SCH (22:04)
[2018-11-14] MEDS: QUEtiapine 25 MG Tablet PO SCH (22:20)
[2018-11-15] MEDS: Escitalopram 10 MG Tablet PO SCH (09:28)
[2018-11-15] MEDS: Propafenone 150 MG Tablet PO SCH ×3 (09:28→18:26)
[2018-11-15] MEDS: Potassium Chloride Liq 20 MEQ/15 ML UDC PO SCH ×2 (09:29→21:24)
[2018-11-15] MEDS: dilTIAZem 30 MG Tablet PO SCH ×3 (09:29→18:26)
[2018-11-15] MEDS: Sodium Chloride 0.9% 2 ML Flush BID IV.FLUSH SCH ×2 (09:30→21:24)
--- NOTE | 2018-11-15 10:45 | P.PNIM ---
Subjective Interval history: f/u; dementia/ C- diff/ Hypokalemia in no acute distress. awake but confused. currently on restraints. diarrhea is improving. d/w the RN and no acute issues over night. Physical Exam Vital signs: Vital Signs 11/14/18 16:25 Temperature 98.0 F Pulse Rate 78 Respiratory Rate 18 Blood Pressure 172/80 H Intake & Output 11/14/18 11/15/18 11/15/18 18:59 06:59 18:59 Intake Total 1000 / 1000 1050 / 1050 Balance 1000 / 1000 1050 / 1050 Intake: IV 1000 / 1000 1000 / 1000 D5W/NS + KCL 40 mEq Inj 1,000 1000 / 1000 1000 / 1000 ML @ 75 mls/hr IV.SIG .[id number] RAY Rx#:[id number] Oral 0 / 0 0 / 0 Oral Supplement 0 / 0 50 / 50 Other: Date of Last Bowel Movement 11/14/18 Constitutional no acute distress Routine Respiratory Exam Present CTA bilaterally Routine Cardiovascular Exam Present RRR Routine Abdominal Exam Present soft Routine Extremities Exam Comments: no pedal edema. Routine Neurological Exam awake but confused. Results Labs CBC & Chem 7: 11/12/18 06:35 11/13/18 08:45 Assessment and Plan Plan A/P AMS- Due to exacerbation of underlying psychosis. hospice consulted. METABOLIC ENCEPHALOPATHY/UTI- stopped iv abx, asymptomatic now. C DIf: stopped abx, vanco po- dairrhea improving. HYPOKALEMIA- will repeat BMP today. [facility]- [facility]- started clonidine patch as she is refusing po and this may help with agitation. Discharge Planning: pending hospice evaluation and clinical course. currently on restraints. Progress Note: Quality VTE Deep Vein Thrombosis/Pulmonary Embolism Present on Admission: No
[2018-11-15 11:37] LABS: Calcium 8.4 mg/dL (8.5-10.1); Carbon Dioxide 24.3 meq/L (21.0-32.0); Potassium 3.4 meq/L (3.5-5.1)
[2018-11-15] MEDS: KCL 40 mEq/D5W/NaCl 0.9% Inj 1,000 ML IV.SIG SCH (13:22)
--- NOTE | 2018-11-15 16:10 | P.PNPSY ---
Subjective Remarks: Patient seen for follow-up, chart reviewed. Discussion with nursing staff reported that patient with poor PO intake, no aggressive behavior or ETOs. Patient found lying on hospital bed, calm and cooperative, noted with pleasant affect, making statements off topic, baseline confusion. Patient encouraged to increase nutritional intake which she agrees. Review of Systems All other systems reviewed negative except as stated in HPI Mental Status Examination Appearance: Appropriate Consciousness: Alert Orientation: Person Motor Activity: Other (In soft restraints) Speech: Unremarkable Language: Other (rambling at times) Fund of Knowledge: Poor Attention and Concentration: Inadequate Memory: Impaired Mood: Appropriate Affect: Appropriate Thought Process & Associations: Disorganized Thought Content: Other (concrete, rambling at times) Hallucination Type: None Delusion Type: None Suicidal Ideation: No Suicidal Plan: No Suicidal Intention: No Homicidal Ideation: No Homicidal Plan: No Homicidal Intention: No Insight: Poor Judgment: Poor Assessment and Plan - Assessment (1) Dementia with behavioral disturbance Code(s): F03.91 - Unspecified dementia with behavioral disturbance Status: Acute - Plan Plan: Patient continues with baseline confusion, noted with pleasant affect, cooperative with care. Patient continues to require medical clearance prior to discharge back to facility. Continue recommendations as per primary medical team. Discharge planning in progress. Justification for Continued Inpatient Stay: At risk for further decompensation at lower level of care. (1) Dementia with behavioral disturbance Qualifiers: Dementia type: unspecified type Qualified Code(s): F03.91 - Unspecified dementia with behavioral disturbance
[2018-11-15] MEDS: QUEtiapine 25 MG Tablet PO SCH (21:25)
[2018-11-16] MEDS: Haloperidol Inj 5 MG/ML Ampul IM SCH ×2 (06:25→22:46)
[2018-11-16] MEDS: Potassium Chloride Liq 20 MEQ/15 ML UDC PO SCH ×2 (09:11→22:47)
[2018-11-16] MEDS: Escitalopram 10 MG Tablet PO SCH (09:11)
[2018-11-16] MEDS: Sodium Chloride 0.9% 2 ML Flush BID IV.FLUSH SCH ×2 (09:12→22:47)
[2018-11-16] MEDS: dilTIAZem 30 MG Tablet PO SCH ×3 (09:12→17:34)
[2018-11-16] MEDS: Propafenone 150 MG Tablet PO SCH ×3 (09:12→17:34)
--- NOTE | 2018-11-16 12:27 | P.PNIM ---
Subjective Interval history: Follow up for dementia, C.diff, hypokalemia, poor oral intake. The patient is awake, remains confused. Discussed with RN, reports diarrhea is starting to become more solid. Vital signs reviewed and stable. Physical Exam Vital signs: Vital Signs 11/15/18 18:01 11/16/18 06:00 Temperature 98.3 F 98.2 F Pulse Rate 66 73 Respiratory Rate 18 17 Blood Pressure 164/74 H 126/88 Pulse Oximetry 96 96 Intake & Output 11/15/18 11/16/18 11/16/18 18:59 06:59 18:59 Intake Total 1075 / 1075 960 / 960 Balance 1075 / 1075 960 / 960 Intake: IV 1075 / 1075 D5W/NS + KCL 40 mEq Inj 1,000 1075 / 1075 ML @ 75 mls/hr IV.SIG .[id number] RAY Rx#:[id number] Oral 960 / 960 Other: Date of Last Bowel Movement 11/14/18 11/14/18 11/16/18 # Bowel Movements 1 Narrative: GENERAL: Elderly female patient in NAD. Confused. SKIN: Warm and dry. No rash. HEENT: Atraumatic. Pupils equal and round. Mucous membranes pink and moist. CARDIOVASCULAR: Regular rate and rhythm. No murmur appreciated. RESPIRATORY: No accessory muscle use. Clear to auscultation. Breath sounds equal bilaterally. GASTROINTESTINAL: Abdomen soft, non-tender, nondistended. Normoactive bowel sounds x4. MUSCULOSKELETAL: No obvious deformities. Extremities without clubbing, cyanosis , or edema. NEUROLOGICAL: Awake and alert. No obvious cranial nerve deficits. Moving all extremities spontaneously. Normal speech. Results Labs CBC & Chem 7: 11/12/18 06:35 11/15/18 11:17 Assessment and Plan (1) Dementia with behavioral disturbance: Code(s): F03.91 - Unspecified dementia with behavioral disturbance Status: Acute Plan 78 year old female who was recently admitted to [facility]. She barricaded herself and ended up coming in under a Kennedy Act. She returned to SNF and was brought back under [place] act for combative behavior and psychosis. Psychosis/AMS/Metabolic Encephalopathy/Dementia with Behavioral Disturbances: suspect worsening mentation/agitation secondary to psychosis with advanced dementia, exacerbated by UTI/C.diff -urine culture with citrobacter koseri, completed treatment with IV Rocephin , now asymptomatic -Continue on treatment for C.diff as below -Hospice consulted for advanced end-stage dementia -Continue management of psychosis by psychiatry C.difficile Diarrhea: likely secondary to [facility] -C.diff studies showed DNA positive, 027negative, Ag positive, however Toxin Negative -Patient reportedly with intractable diarrhea, therefore started on vanco per attending -Continue on vanco 500mg po qid, unknown if this is patient's first or recurrent episode of C.diff therefore will leave vanco dosing at 500mg qid per attending Dr. Pettit, consider de-escalating dosing vs discontinuing since toxin negative and per review of EMR, does not appear to have any prior episodes of C.diff. -Continue lactinex -diarrhea improving per RN, becoming more solid Hypokalemia: intractable hypokalemia with K as low as 2.6, suspect secondary to GI losses from diarrhea -given KCl replacement -repeat K 3.4, improving -monitor BMP HTN: Chronic, patient intermittently refusing meds -started clonidine patch as she is refusing po and this may help with agitation. Discharge Planning: pending hospice evaluation and clinical course. Progress Note: Quality VTE Deep Vein Thrombosis/Pulmonary Embolism Present on Admission: No _ (1) Dementia with behavioral disturbance Qualifiers: Alzheimer's disease onset: Dementia type: unspecified type Qualified Code(s ): F03.91 - Unspecified dementia with behavioral disturbance
--- NOTE | 2018-11-16 12:56 | P.PNPSY ---
Subjective Chief Complaint: Follow-up treatment of dementia with behaviors Remarks: Patient seen for follow-up, chart reviewed, patient discussed with nursing staff ; we reviewed the patient's mood, thoughts, and behaviors from overnight and this morning. Nurse reports that patient slept 7 hours overnight. She did refuse her nighttime oral medications and received Haldol 2 mg IM. Nurse reports that this morning the patient has been smiling but confused but did cooperate with her morning medications. Patient was seen at bedside and she had no complaints. She reports "I plan on going after the weekend will see if they are able to find me a house." Mental Status Examination Appearance: Appropriate Consciousness: Alert Orientation: Person Motor Activity: Other (Did not observe) Speech: Unremarkable Language: Other (rambling at times) Fund of Knowledge: Poor Attention and Concentration: Inadequate Memory: Impaired Mood: Appropriate Affect: Appropriate Thought Process & Associations: Disorganized Thought Content: Other (concrete, rambling at times) Hallucination Type: None Delusion Type: None Suicidal Ideation: No Suicidal Plan: No Suicidal Intention: No Homicidal Ideation: No Homicidal Plan: No Homicidal Intention: No Insight: Poor Judgment: Poor Assessment and Plan - Assessment (1) Dementia with behavioral disturbance Code(s): F03.91 - Unspecified dementia with behavioral disturbance Status: Acute - Plan Plan: November 15, 2018: Patient continues with baseline confusion, noted with pleasant affect, cooperative with care. Patient continues to require medical clearance prior to discharge back to facility. Continue recommendations as per primary medical team. Discharge planning in progress. November 16, 2018: Fair response to treatment, the patient has not had any combative behaviors and although she refused oral medications last night due to confusion she was cooperative this morning. Justification for Continued Inpatient Stay: Patient remains an elevated risk for self-harm by self neglect and will require further inpatient stabilization and preparation of a safe discharge plan. Moving patient to a less restrictive environment at this time may result in decompensation. (1) Dementia with behavioral disturbance Qualifiers: Dementia type: unspecified type Qualified Code(s): F03.91 - Unspecified dementia with behavioral disturbance
[2018-11-16] MEDS: QUEtiapine 25 MG Tablet PO SCH (22:47)
[2018-11-17 06:12] VITALS: O2SAT 97
--- NOTE | 2018-11-17 07:49 | P.PNIM ---
Subjective Interval history: Follow up for dementia, C.diff, hypokalemia, poor oral intake. The patient is pleasantly confused, unable to obtain any reliable history. Bowel movements continue to improve. Vital signs stable. Physical Exam Vital signs: Vital Signs 11/16/18 17:30 11/16/18 20:00 11/17/18 06:00 Temperature 97.3 F L 98.2 F Pulse Rate 70 60 Respiratory Rate 20 20 18 Blood Pressure 166/81 H 101/50 L Pulse Oximetry 97 Intake & Output 11/16/18 11/17/18 11/17/18 18:59 06:59 18:59 Intake Total 960 / 960 Balance 960 / 960 Intake: Oral 960 / 960 Other: Date of Last Bowel Movement 11/16/18 11/16/18 # Bowel Movements 1 Narrative: GENERAL: Elderly female patient in NAD. Confused. SKIN: Warm and dry. No rash. HEENT: Atraumatic. Pupils equal and round. Mucous membranes pink and moist. CARDIOVASCULAR: Regular rate and rhythm. No murmur appreciated. RESPIRATORY: No accessory muscle use. Clear to auscultation. Breath sounds equal bilaterally. GASTROINTESTINAL: Abdomen soft, non-tender, nondistended. Normoactive bowel sounds x4. MUSCULOSKELETAL: No obvious deformities. Extremities without clubbing, cyanosis , or edema. NEUROLOGICAL: Awake and alert. No obvious cranial nerve deficits. Moving all extremities spontaneously. Normal speech. Results Labs CBC & Chem 7: 11/12/18 06:35 11/17/18 09:33 Assessment and Plan (1) Dementia with behavioral disturbance: Code(s): F03.91 - Unspecified dementia with behavioral disturbance Status: Acute Plan 78 year old female who was recently admitted to [facility]. She barricaded herself and ended up coming in under a [place] Act. She returned to SNF and was brought back under [place] act for combative behavior and psychosis. Psychosis/AMS/Metabolic Encephalopathy/Dementia with Behavioral Disturbances: suspect worsening mentation/agitation secondary to psychosis with advanced dementia, exacerbated by UTI/C.diff -urine culture with citrobacter koseri, completed treatment with IV Rocephin , now asymptomatic -Continue on treatment for C.diff as below -Hospice consulted for advanced end-stage dementia -Continue management of psychosis by psychiatry C.difficile Diarrhea: likely secondary to recent abx use and exposure at senior care -C.diff positive and patient symptomatic with intractable diarrhea -Continue on vanco 500mg po qid, unknown if this is patient's first or recurrent episode of C.diff therefore will leave vanco dosing at 500mg qid per primary Dr. Pettit -Continue lactinex -diarrhea improving per RN, becoming more solid Hypokalemia: intractable hypokalemia with K as low as 2.6, suspect secondary to GI losses from diarrhea -given KCl replacement -repeat K 4.1, resolved -monitor BMP HTN: Chronic, patient intermittently refusing meds -started clonidine patch as she is refusing po and this may help with agitation. Discharge Planning: pending hospice evaluation and clinical course. Progress Note: Quality VTE Deep Vein Thrombosis/Pulmonary Embolism Present on Admission: No _ (1) Dementia with behavioral disturbance Qualifiers: Alzheimer's disease onset: Dementia type: unspecified type Qualified Code(s ): F03.91 - Unspecified dementia with behavioral disturbance
[2018-11-17] MEDS: Sodium Chloride 0.9% 2 ML Flush BID IV.FLUSH SCH ×2 (08:28→21:02)
[2018-11-17] MEDS: Escitalopram 10 MG Tablet PO SCH (08:28)
[2018-11-17] MEDS: Potassium Chloride Liq 20 MEQ/15 ML UDC PO SCH ×2 (08:28→21:02)
[2018-11-17] MEDS: Propafenone 150 MG Tablet PO SCH ×3 (08:28→17:03)
[2018-11-17] MEDS: dilTIAZem 30 MG Tablet PO SCH ×3 (08:28→17:03)
[2018-11-17 10:08] LABS: Calcium 9.1 mg/dL (8.5-10.1); Carbon Dioxide 27.3 meq/L (21.0-32.0); Potassium 4.1 meq/L (3.5-5.1)
--- NOTE | 2018-11-17 13:00 | P.PNPSY ---
Subjective Chief Complaint: Follow-up treatment of dementia with behaviors Remarks: Reviewed electronic medical record and discussed with nursing staff. Patient sitting in a chair by her bedside. She took her hospital gown and tied it in the front to resemble a sundress. She is in a pleasant mood. Nursing reports no behavioral concerns. She intermittently takes her medications and their are IM medications ordered if she refuses oral medications. Sleeping well. Appetite is fair. Review of Systems All other systems reviewed negative except as stated in HPI Mental Status Examination Appearance: Appropriate Consciousness: Alert Orientation: Person Motor Activity: Other (Did not observe) Speech: Unremarkable Language: Other (rambling at times) Fund of Knowledge: Poor Attention and Concentration: Inadequate Memory: Impaired Mood: Appropriate Affect: Appropriate Thought Process & Associations: Disorganized Thought Content: Other (concrete, rambling at times) Hallucination Type: None Delusion Type: None Suicidal Ideation: No Suicidal Plan: No Suicidal Intention: No Homicidal Ideation: No Homicidal Plan: No Homicidal Intention: No Insight: Poor Judgment: Poor Assessment and Plan - Assessment (1) Dementia with behavioral disturbance Code(s): F03.91 - Unspecified dementia with behavioral disturbance Status: Acute - Plan Plan: November 15, 2018: Patient continues with baseline confusion, noted with pleasant affect, cooperative with care. Patient continues to require medical clearance prior to discharge back to facility. Continue recommendations as per primary medical team. Discharge planning in progress. November 16, 2018: Fair response to treatment, the patient has not had any combative behaviors and although she refused oral medications last night due to confusion she was cooperative this morning. November 17, 2018 No behavioral concerns noted. Pleasant and cooperative today. Took her medications this morning. Appetite is fair. Justification for Continued Inpatient Stay: Moving patient to a less restrictive environment may result in her decompensation. (1) Dementia with behavioral disturbance Qualifiers: Dementia type: unspecified type Qualified Code(s): F03.91 - Unspecified dementia with behavioral disturbance
[2018-11-17] MEDS: Haloperidol Inj 5 MG/ML Ampul IM SCH (21:01)
[2018-11-17] MEDS: QUEtiapine 25 MG Tablet PO SCH (21:02)
[2018-11-18 05:25] VITALS: RESP 16
[2018-11-18] MEDS: Potassium Chloride Liq 20 MEQ/15 ML UDC PO SCH ×2 (08:17→20:59)
[2018-11-18] MEDS: Sodium Chloride 0.9% 2 ML Flush BID IV.FLUSH SCH ×2 (08:18→20:59)
[2018-11-18] MEDS: Propafenone 150 MG Tablet PO SCH ×3 (08:18→17:36)
[2018-11-18] MEDS: Escitalopram 10 MG Tablet PO SCH (08:18)
[2018-11-18] MEDS: dilTIAZem 30 MG Tablet PO SCH ×3 (08:18→17:35)
--- NOTE | 2018-11-18 12:58 | P.PNIM ---
Subjective Interval history: Follow up for dementia, C.diff, hypokalemia, poor oral intake. The patient seen sitting upright on side of bed, attempting to eat lunch. She remains pleasantly confused. Does not answer any questions appropriately. Discussed with RN, patient had large diarrhea BM this morning. Patient continues to have minimal oral intake. Physical Exam Vital signs: Vital Signs 11/18/18 05:24 Temperature 98.1 F Pulse Rate 63 Respiratory Rate 16 Blood Pressure 114/57 L Intake & Output 11/17/18 11/18/18 11/18/18 18:59 06:59 18:59 Intake Total 480 / 480 250 / 250 Balance 480 / 480 250 / 250 Intake: Oral 480 / 480 250 / 250 Other: # Voids 2 Narrative: GENERAL: Elderly female patient in NAD. Confused. SKIN: Warm and dry. No rash. HEENT: Atraumatic. Pupils equal and round. Mucous membranes pink and moist. CARDIOVASCULAR: Regular rate and rhythm. No murmur appreciated. RESPIRATORY: No accessory muscle use. Clear to auscultation. Breath sounds equal bilaterally. GASTROINTESTINAL: Abdomen soft, non-tender, nondistended. Normoactive bowel sounds x4. MUSCULOSKELETAL: No obvious deformities. Extremities without clubbing, cyanosis , or edema. NEUROLOGICAL: Awake and alert. No obvious cranial nerve deficits. Moving all extremities spontaneously. Normal speech. Results Labs CBC & Chem 7: 11/12/18 06:35 11/17/18 09:33 Assessment and Plan (1) Dementia with behavioral disturbance: Code(s): F03.91 - Unspecified dementia with behavioral disturbance Status: Acute Plan 78 year old female who was recently admitted to [facility]. She barricaded herself and ended up coming in under a [place] Act. She returned to SNF and was brought back under [place] act for combative behavior and psychosis. Psychosis/AMS/Metabolic Encephalopathy/Dementia with Behavioral Disturbances: suspect worsening mentation/agitation secondary to psychosis with advanced dementia, exacerbated by UTI/C.diff -urine culture with citrobacter koseri, completed treatment with IV Rocephin , now asymptomatic -Continue on treatment for C.diff as below -Hospice consulted for advanced end-stage dementia -Continue management of psychosis by psychiatry C.difficile Diarrhea: likely secondary to recent abx use and exposure at group home -C.diff positive and patient symptomatic with intractable diarrhea -Continue on vanco 500mg po qid, unknown if this is patient's first or recurrent episode of C.diff therefore will leave vanco dosing at 500mg qid per primary Dr. Pettit -Continue lactinex -Patient continues to have diarrhea with minimal oral intake, concern for dehydration, repeat labs in am Hypokalemia: intractable hypokalemia with K as low as 2.6, suspect secondary to GI losses from diarrhea -given KCl replacement -repeat K 4.1, resolved -monitor BMP as patient continues to have diarrhea with poor oral intake HTN: Chronic, patient intermittently refusing meds -started clonidine patch as she is refusing po and this may help with agitation. Discharge Planning: pending hospice evaluation and clinical course. Progress Note: Quality VTE Deep Vein Thrombosis/Pulmonary Embolism Present on Admission: No _ (1) Dementia with behavioral disturbance Qualifiers: Alzheimer's disease onset: Dementia type: unspecified type Qualified Code(s ): F03.91 - Unspecified dementia with behavioral disturbance
--- NOTE | 2018-11-18 16:18 | P.PNPSY ---
Subjective Chief Complaint: Follow-up treatment of dementia with behaviors Remarks: Patient seen for follow-up, chart reviewed. Discussion with nursing staff reported that patient no behavior disturbances, continues to have baseline confusion but no episodes of agitation. Patient was found sitting in hospital bed noted to be soiled with feces and urine, continues with baseline confusion. It appears patient was attempting to clean up her feces in the restroom with her diaper requiring assistance. Patient continues to require encouragement for p.o. intake. Patient has not required any further restraints, has been calm pleasant and allowing for care with staff. Patient continues to be psychiatrically cleared but continues to require further medical stabilization prior to discharge back to her residential facility. Review of Systems All other systems reviewed negative except as stated in HPI Mental Status Examination Appearance: Appropriate Consciousness: Alert Orientation: Person Motor Activity: Normal gait Speech: Unremarkable Language: Other (rambling at times) Fund of Knowledge: Poor Attention and Concentration: Inadequate Memory: Impaired Mood: Appropriate Affect: Appropriate Thought Process & Associations: Other ([place]) Thought Content: Other (concrete, rambling at times) Hallucination Type: None Delusion Type: None Suicidal Ideation: No Suicidal Plan: No Suicidal Intention: No Homicidal Ideation: No Homicidal Plan: No Homicidal Intention: No Insight: Poor Judgment: Poor Assessment and Plan - Assessment (1) Dementia with behavioral disturbance Code(s): F03.91 - Unspecified dementia with behavioral disturbance Status: Acute - Plan Plan: Patient this time continues with baseline confusion secondary to neurocognitive deficits but no evidence of acute psychosis or mood disorder. We will continue current treatment. We will continue recommendations as per primary team this patient is continually requiring medical stabilization prior to be discharged back to her residential facility but at this time does not continue to require inpatient psychiatric hospitalization. If patient continues to require further days for medical stabilization we will request transfer to medical service for continued medical management. Continue current treatment. Continue monitor mood and behavior. Hospitalist input appreciated. Discharge planning in progress. Justification for Continued Inpatient Stay: At risk of further decompensation at lower level care. (1) Dementia with behavioral disturbance Qualifiers: Dementia type: unspecified type Qualified Code(s): F03.91 - Unspecified dementia with behavioral disturbance
[2018-11-18] MEDS: Haloperidol Inj 5 MG/ML Ampul IM SCH ×2 (20:59→21:09)
[2018-11-18] MEDS: QUEtiapine 25 MG Tablet PO SCH (21:00)
[2018-11-19 06:47] VITALS: BP 147/76; PULSE 66; TEMP 97.6
[2018-11-19 07:27] LABS: Hematocrit 36.5 % (35.0-46.0); Hemoglobin 12.5 gm/dL (11.6-15.3); Mean Corpuscular HGB Conc 34.2 % (32.0-36.0); Mean Corpuscular Hemoglobin 30.4 pg (27.0-34.0); Mean Corpuscular Volume 88.8 fL (80.0-100.0); Mean Platelet Volume 6.6 fL (7.0-11.0); Platelet Count 297 th/mm3 (150-450); Red Blood Count 4.11 mil/mm3 (4.00-5.30); White Blood Count 6.9 th/mm3 (4.0-11.0)
[2018-11-19 07:30] LABS: Calcium 8.7 mg/dL (8.5-10.1); Potassium 4.1 meq/L (3.5-5.1)
[2018-11-19 08:36] LABS: Lymphocytes 18 % (9-44); Monocytes 1 % (0-8); Platelet Estimate Normal (Normal); Platelet Morphology Normal (Normal)
[2018-11-19] MEDS: Escitalopram 10 MG Tablet PO SCH (10:44)
[2018-11-19] MEDS: Propafenone 150 MG Tablet PO SCH ×2 (10:44→14:30)
[2018-11-19] MEDS: dilTIAZem 30 MG Tablet PO SCH ×2 (10:45→14:30)
--- NOTE | 2018-11-19 11:00 | P.PNIM ---
Subjective Interval history: Follow up for C.difficile. The patient continues to be pleasantly confused. Diarrhea improved. Tolerating small amounts of oral intake. No other acute concerns. Physical Exam Vital signs: Vital Signs 11/18/18 17:35 11/19/18 06:00 Temperature 98.9 F 97.6 F Pulse Rate 73 66 Respiratory Rate 16 16 Blood Pressure 147/72 H 147/76 H Pulse Oximetry 97 Intake & Output 11/18/18 11/19/18 11/19/18 18:59 06:59 18:59 Intake Total 960 / 960 240 / 240 480 / 480 Balance 960 / 960 240 / 240 480 / 480 Intake: Oral 960 / 960 240 / 240 480 / 480 Other: # Voids 2 2 Date of Last Bowel Movement 11/18/18 Narrative: GENERAL: Elderly female patient in NAD. Confused. SKIN: Warm and dry. No rash. HEENT: Atraumatic. Pupils equal and round. Mucous membranes pink and moist. CARDIOVASCULAR: Regular rate and rhythm. No murmur appreciated. RESPIRATORY: No accessory muscle use. Clear to auscultation. Breath sounds equal bilaterally. GASTROINTESTINAL: Abdomen soft, non-tender, nondistended. Normoactive bowel sounds x4. MUSCULOSKELETAL: No obvious deformities. Extremities without clubbing, cyanosis , or edema. NEUROLOGICAL: Awake and alert. No obvious cranial nerve deficits. Moving all extremities spontaneously. Dysarthric, word salad. Results Labs CBC & Chem 7: 11/19/18 06:46 11/19/18 06:46 Assessment and Plan (1) Dementia with behavioral disturbance: Code(s): F03.91 - Unspecified dementia with behavioral disturbance Status: Acute Plan 78 year old female who was recently admitted to [facility]. She barricaded herself and ended up coming in under a Kennedy Act. She returned to SNF and was brought back under [place] act for combative behavior and psychosis. Psychosis/AMS/Metabolic Encephalopathy/Dementia with Behavioral Disturbances: suspect worsening mentation/agitation secondary to psychosis with advanced dementia, exacerbated by UTI/C.diff -urine culture with citrobacter koseri, completed treatment with IV Rocephin , now asymptomatic -Continue on treatment for C.diff as below -Hospice consulted for advanced end-stage dementia -Continue management of psychosis by psychiatry C.difficile Diarrhea: likely secondary to recent abx use and exposure at residential -C.diff positive and patient symptomatic with intractable diarrhea -Continue on vanco 500mg po qid, unknown if this is patient's first or recurrent episode of C.diff therefore will leave vanco dosing at 500mg qid per primary Dr. Pettit -Continue lactinex -BMP remains stable, no signs of dehydration, diarrhea improving -Medically stable for discharge, to complete 10 days of po vanco Hypokalemia: intractable hypokalemia with K as low as 2.6, suspect secondary to GI losses from diarrhea -given KCl replacement -repeat K 4.1, resolved HTN: Chronic, patient intermittently refusing meds -started clonidine patch as she is refusing po and this may help with agitation. Discharge Planning: The patient is medically stable for discharge. To complete 10days of po vanco for treatment of C.difficile. Progress Note: Quality VTE Deep Vein Thrombosis/Pulmonary Embolism Present on Admission: No _ (1) Dementia with behavioral disturbance Qualifiers: Alzheimer's disease onset: Dementia type: unspecified type Qualified Code(s ): F03.91 - Unspecified dementia with behavioral disturbance
--- NOTE | 2018-11-19 14:19 | P.DSPSY ---
Psychiatry Discharge Summary Inpatient Psychiatric care?: Yes Advance Directives: No Reason for Unknown:: Due to Patient Condition Mental Health Advance Directive: No Health Care Proxy: Yes - Admission Admission Date: November 06, 2018 15:30 - Admission Diagnosis (1) Dementia with behavioral disturbance Code(s): F03.91 - Unspecified dementia with behavioral disturbance Brief History: Patient is a 78-year-old woman, domiciled in a nursing facility ( [facility]), who carries a diagnosis of dementia, one previous psychiatric admission here at [facility] in August 2018, with no substance use history, with a past medical significant for hypertension, cardiac arrhythmias, and recent diagnosis of urinary tract infection which patient was brought in under [facility] act due to alleged behavior of aggression toward staff at facility which patient was admitted to the inpatient psychiatry for further evaluation and management. As per chart patient was discharged during last admission on quetiapine 50 g p.o. at bedtime, Lexapro 10 mg p.o. daily which as per report has been refusing meds prior to her admission, with behavior that has been "escalating" which patient was allegedly throwing items at people, throwing feces, paranoid. As per ED note facility had mentioned refused to take patient back. Patient was started on Keflex for UTI in the ED along with C. difficile stool sample which as per lab is negative at this time. Patient is alert and oriented only to person. Patient was seen with nurse earlier this morning and found lying in hospital bed with eyes closed, was refusing to engage in interview, was nonverbal this morning, continues to have poor p.o. intake. Labs reviewed patient noted to have hypokalemia which currently being managed by medical team. As per chart patient's sister had consented to continue psychiatric medications. Family psychiatric history: Unknown Past psychiatric history: previous psychiatric diagnosis of dementia, one prior psychiatric admission here at [facility] August 2018, unknown prior suicide attempts, previous medication trials include quetiapine 50 mg p.o. at bedtime, citalopram 10 mg p.o. daily. Substance use history: Denies Past medical history: Hypertension, cardiac arrhythmia Allergies: Atorvastatin, rosuvastatin Social history: Domiciled nursing facility ([facility]). Tobacco Use In Past 30 Days: No How Often Do You Have a Drink Containing Alcohol: Never Hospital Course: Patient is a 78-year-old woman, domiciled in a nursing facility ( [facility]), who carries a diagnosis of dementia, one previous psychiatric admission here at [facility] in August 2018, with no substance use history, with a past medical significant for hypertension, cardiac arrhythmias, and recent diagnosis of urinary tract infection which patient was brought in under [place] act due to alleged behavior of aggression toward staff at facility which patient was admitted to the inpatient psychiatry for further evaluation and management. Patient was admitted to a locked, inpatient psychiatric unit. Appropriate precautions were in place throughout patient's hospital stay. Patient was seen and examined on the unit by psychiatry. Psychotropic medications were adjusted. There was no evidence of any suicidality or homicidality on the inpatient unit. Patient's mood improved with the benefit of psychopharmacological treatment but had behavioral disturbances early in the hospitalization but had subsided and had no further behavioral disturbance. Patient was noted to continue with baseline confusion secondary to neurocognitive deficits. Patient was noted to have reached stable mood, noted to participate and engage in treatment and interact with staff adequately allowing for care. Counselor has arranged discharge plan which patient will return back to nursing facility. On the day of discharge: Patient seen and examined; chart reviewed. Case discussed with nurse and counselor. No behavioral issues overnight. On my examination today, the patient denies any suicidal homicidal ideation, intent or plan on direct questioning and contracts for safety. Patient denies any perceptional disturbances and no delusional material verbalized today but noted with continued baseline confusion. No physical complaints. Suicide and violence risk assessment on day of discharge both suggest lower imminent risk, and the patient's level of function is adequate for plan level of outpatient care. Patient has maximized benefit from this inpatient psychiatric hospital stay and will be discharged with discharge plan as arranged by counselor. - Discharge Discharge Date: 11/19/18 - Discharge Diagnosis (1) Dementia with behavioral disturbance Code(s): F03.91 - Unspecified dementia with behavioral disturbance Status: Acute Discharge Disposition: [facility] - Discharge Instructions Discharge Diet: Heart Healthy Diet Activities You Can Perform: Weight Bearing As Tolerat - Discharge Time > 30 minutes Mental Status Examination Appearance: Appropriate Consciousness: Alert Orientation: Person Motor Activity: Normal gait Speech: Unremarkable Language: Other (rambling at times) Fund of Knowledge: Poor Attention and Concentration: Inadequate Memory: Impaired Mood: Appropriate Affect: Appropriate Thought Process & Associations: Other ([place]) Thought Content: Other (concrete, rambling at times) Hallucination Type: None Delusion Type: None Suicidal Ideation: No Suicidal Plan: No Suicidal Intention: No Homicidal Ideation: No Homicidal Plan: No Homicidal Intention: No Insight: Poor Judgment: Poor Discharge/Advance Care Plan - Results Vital Signs: Last Vital Signs Temp 97.6 F 11/19/18 06:00 Pulse 66 11/19/18 06:00 Resp 16 11/19/18 06:00 BP 147/76 H 11/19/18 06:00 Pulse Ox 97 11/18/18 17:35 Lab Results: Abnormal Lab Results 11/19/18 11/19/18 06:46 06:46 WBC 6.9 RBC 4.11 Hgb 12.5 Hct 36.5 MCV 88.8 MCH 30.4 MCHC 34.2 RDW 13.0 Plt Count 297 MPV 6.6 L Prelim Diff (Auto) Manual diff required WBC Differential Manual diff final Seg Neuts % (Manual) 70 Band Neuts % (Manual) 11 H Lymphocytes % (Manual) 18 Monocytes % (Manual) 1 Abs Neuts (Manual) 5.6 Differential Comment . Platelet Estimate Normal Platelet Morphology Normal Hematology Comments Sodium 142 Potassium 4.1 Chloride 108 H Carbon Dioxide 28.0 Anion Gap 6 BUN 21 H Creatinine 0.85 Estimated GFR 65 L Random Glucose 86 Calcium 8.7 Laboratory Results Hemoglobin A1c 5.0 % (4.3-6.0) 11/07/18 06:49 Triglycerides 76 mg/dL (42-150) 11/07/18 06:49 Cholesterol 177 mg/dL (120-200) 11/07/18 06:49 LDL Cholesterol, Calc 108 mg/dL (0-99) H 11/07/18 06:49 HDL Cholesterol 54.0 mg/dL (40.0-60.0) 11/07/18 06:49 TSH 1.780 uIU/mL (0.358-3.740) 11/06/18 11:20 Urine Culture Comments Cath-cult indicated 11/06/18 14:25 Summary of Procedures: none Imaging: ITS Impressions Chest X-Ray 11/06/18 00:00 CONCLUSION: No acute cardiopulmonary disease. Pending Results: None - Medications Number of antipsychotic medications at discharge: 1 - Discharge Care Plan Goals to Promote Your Health: * To prevent worsening of your condition and complications * To maintain your health at the optimal level Directions to Meet Your Goals: Take your medications as prescribed Follow your dietary instruction Follow activity as directed Keep your appointments as scheduled Take your immunizations and boosters as scheduled If your symptoms worsen call your PCP, if no PCP go to Urgent Care Center or Emergency Room For 16/04 questions related to your inpatient stay or results of tests pending at discharge, please contact Dr. Sanjay Garzon MD at Smoking is Dangerous to Your Health. Avoid second hand smoking (1) Dementia with behavioral disturbance Qualifiers: Dementia type: unspecified type Qualified Code(s): F03.91 - Unspecified dementia with behavioral disturbance (1) Dementia with behavioral disturbance Qualifiers: Dementia type: unspecified type Qualified Code(s): F03.91 - Unspecified dementia with behavioral disturbance
[2018-11-19] MEDS: Potassium Chloride Liq 20 MEQ/15 ML UDC PO SCH (16:42)
[2018-11-19] MEDS: Sodium Chloride 0.9% 2 ML Flush BID IV.FLUSH SCH (17:02)
== END 2018-11-19 16:40 | DRG 56 ==
LOC: NEPD 10:30 → NEDA 15:30 → H4EA 16:30
PROVIDERS: ADMIT Student in an Organized Health Care Education/Training Program; ATTEND Student in an Organized Health Care Education/Training Program
CPT/HCPCS: 71010; 71045; 80048; 80053; 80061; 80307; 81001; 83036; 83735; 84132; 84443; 85025; 87077; 87086; 87186; 87275; 87276; 87324; 87449; 87493; 87804; 90772; 90774; 90782; 90784; 93005; 94640; 94664; 94665; 96372; 96374; 97110; 97162; 97530; 99285; C8952; J0696; J1630; J2060; J2270; J3480; Q0177